=== PATIENT | male | born 1960 | race Caucasian/White ===

== ENCOUNTER 2016-08-29 19:35 | Emergency (ER) | payer OTHER ==
[2016-08-29 19:47] VITALS: BP 136/64; PULSE 90; TEMP 97.9; BMI 31.9
--- NOTE | 2016-08-29 20:58 | PDOC ---
"History of Present Illness <Olivia Fuchs - Last Filed: 08/29/16 20:53> - General History Source: Patient Exam Limitations: No Limitations - History of Present Illness Initial Comments: 08/29/16 21:07 Chief Complaint: Misplaced his bottle came for a new script of Percocet. History of Present Illness: The patient is a 56 year old male, with a significant past medical history of Chronic hip pain, OCD, depression, Anxiety, Bilateral knee replacement, Arthritis of bilateral hips who presents to the emergency department requesting percocet.He states he keeps his medications in a lock box that is only accessible to him. However patient was unable to find his pain medications because he thinks he threw them out. According to DES I stop- patient's record does reveal any sign of narcotic abuse. Patient notes he has a plan to decrease his pain medications in the future. Patient is requesting Percocet until his appointment with Dr. Stevens for his bilateral hip pain. He denies chest pain, headache or dizziness. He denies fever, chills, nausea, vomit, diarrhea or constipation. He denies dysuria, frequency, urgency or hematuria. <Lissette Nolasco - Last Filed: 08/29/16 21:56> - General Chief Complaint: RX Refill Stated Complaint: RX REFILL Time Seen by Provider: 08/29/16 20:29 Past History - Past Medical History HTN: Yes Other medical history: chronic hip pain - Surgical History Abdominal Surgery: Yes (Left inguinal hernia repair X2) Orthopedic Surgery: Yes (Bilateral knee replacement) - Psycho/Social/Smoking Cessation Hx Anxiety: No Suicidal Ideation: No Smoking Status: Yes Smoking History: Current every day smoker Have you smoked in the past 12 months: Yes Number of Cigarettes Smoked Daily: 20 Information on smoking cessation initiated: No 'Breaking Loose' booklet given: 08/13/15 Hx Alcohol Use: No Drug/Substance Use Hx: No Substance Use Type: None Hx Substance Use Treatment: No <Olivia Fuchs - Last Filed: 08/29/16 20:53> <Lissette Nolasco - Last Filed: 08/29/16 21:56> - Past Medical History Allergies/Adverse Reactions: Allergies Allergy/AdvReac Type Severity Reaction Status Date / Time No Known Allergies Allergy Verified 08/29/16 19:47 Home Medications: Ambulatory Orders Doxepin HCl [Sinequan -] 50 mg PO HS 09/09/12 Lisinopril/Hydrochlorothiazide [Lisinopril-Hctz 20-25 mg Tab] 1 each PO DAILY Clonazepam [Klonopin] 2 mg PO HS 08/13/15 Acetaminophen [Tylenol .Regular Strength -] 325 mg PO TID PRN #0 tablet Aspirin [ASA -] 81 mg PO DAILY tab.chew 08/14/15 Venlafaxine HCl ER [Effexor Xr -] 300 mg PO DAILY cap.er.24h 08/14/15 Oxycodone HCl/Acetaminophen [Oxycodone-Acetaminophen 5-325] 1.5 each PO Q8H PRN #8 tablet MDD 4.5 tabs 08/29/16 Review of Systems - Review of Systems Able to Perform ROS?: Yes Comments:: 08/29/16 21:09 CONSTITUTIONAL: Absent: fever, no chills, no fatigue EYES: Absent: visual changes ENT: Absent: ear pain, no sore throat CARDIOVASCULAR: Absent: chest pain, no palpitations RESPIRATORY: Absent: cough, no SOB GI: Absent: abdominal pain, no nausea, no vomiting, no constipation, no diarrhea GENITOURINARY: Absent: dysuria, no frequency, no hematuria MUSCULOSKELETAL: + Bilateral hip pain. Absent: back pain, no arthralgia, no myalgia SKIN: Absent: rash NEURO: Absent: headache <Lissette Nolasco - Last Filed: 08/29/16 21:56> *Physical Exam - Vital Signs Last Vital Signs Temp Pulse Resp BP Pulse Ox 97.9 F 90 18 136/64 99 08/29/16 19:43 08/29/16 19:43 08/29/16 19:43 08/29/16 19:43 08/29/16 19:43 <Olivia Fuchs - Last Filed: 08/29/16 20:53> - Vital Signs Last Vital Signs Temp Pulse Resp BP Pulse Ox 97.9 F 90 18 136/64 99 08/29/16 19:43 08/29/16 19:43 08/29/16 19:43 08/29/16 19:43 08/29/16 19:43 - Physical Exam Comments: 08/29/16 21:09 GENERAL: Well-appearing, well-nourished. No apparent distress. HEENT: Normocephalic, atraumatic. PERRL, EOM intact. CARDIOVASCULAR: Normal S1, S2. Regular rate and rhythm. PULMONARY: Clear to auscultation bilaterally. ABDOMEN: Soft, non-distended, non-tender. EXTREMITIES: Normal ROM in all four extremities. No gross deformities. SKIN: Warm, dry. No rash NEUROLOGICAL: No focal neurological deficits. <Lissette Nolasco - Last Filed: 08/29/16 21:56> Medical Decision Making - Medical Decision Making 08/29/16 20:54 B/L hip pain lost RX for percocet will give pt rx for percocet 7.5mg/325mg every 8 hrs # 5 tabs Search Terms: juan Davidson, 1960 Search Date: 08/29/2016 08:52:35 PM report was requested by: Olivia Fuchs | Reference #: [id number] Others' Prescriptions Patient Name: Juan Davidson Date: 1960 Address: [address] [place] [address] Sex: Male Rx Written Rx Dispensed Drug Quantity Days Supply Prescriber Name 08/10/2016 08/19/2016 oxycodone-acetaminophen 10-325 mg tab 90 30 Edgar Stevens MD 08/03/2016 08/11/2016 clonazepam 1 mg tablet 90 30 Tye Mason MD 07/12/2016 07/21/2016 oxycodone-acetaminophen 10-325 mg tab 90 30 Edgar Stevens MD 06/23/2016 07/12/2016 clonazepam 1 mg tablet 90 30 Tye Mason MD 06/15/2016 06/22/2016 oxycodone-acetaminophen 10-325 mg tab 90 30 Edgar Stevens MD 05/25/2016 06/13/2016 clonazepam 1 mg tablet 90 30 Tye Mason MD <Olivia Fuchs - Last Filed: 08/29/16 20:53> *DC/Admit/Observation/Transfer <Olivia Fuchs - Last Filed: 08/29/16 20:53> - Attestations Scribe Attestion: 08/29/16 21:09 Documentation prepared by Lissette Nolasco, acting as emergency medical dispatcher for Olivia Fuchs NP <Lissette Nolasco - Last Filed: 08/29/16 21:56> Diagnosis at time of Disposition: Medication refill Osteoarthritis Qualifiers: Osteoarthritis location: hip Osteoarthritis type: unspecified Laterality: bilateral Qualified Code(s): M16.0 - Bilateral primary osteoarthritis of hip - Discharge Dispostion Disposition: HOME Condition at time of disposition: Stable - Prescriptions Prescriptions: Oxycodone HCl/Acetaminophen [Oxycodone-Acetaminophen 5-325] 1.5 each PO Q8H PRN #8 tablet MDD 4.5 tabs PRN Reason: Severe Pain - Referrals Referrals: Edgar Stevens MD [Primary Care Provider] - - Patient Instructions Additional Instructions: Must follow up with Dr. Stevens on 08/31/16 in order to obtain an additional pain medication Return to emergency room if any new symptoms develop Patient voiced understanding of discharge instructions and all questions were answered"
== END 2016-08-29 21:10 | disposition home or self-care (01) ==
LOC: JERFT 19:35
DX: M16.0 Bilateral primary osteoarthritis of hip (principal)
CPT/HCPCS: 99281-25

== ENCOUNTER 2016-11-20 13:29 | Inpatient (IN) | payer OTHER ==
--- NOTE | 2016-11-20 13:44 | PDOC ---
History of Present Illness <Solitario Baldwin - Last Filed: 11/20/16 15:39> - General History Source: Patient Exam Limitations: No Limitations - History of Present Illness Initial Comments: 11/20/16 14:16 The patient is a 56 year old male with a significant PMH of who presents to the emergency department with shortness of breath and chest pain beginning today. The patient reports cleaning outside of his house and going inside to lay down, when he experienced about an hour of shortness of breath. He reports experiencing chest pain shortly after. He also notes associated weakness with his chest pain. The patient denies that the chest pain is aggravated by inspiration. The patient also visited Dr. Stevens for dark stool at around , and was referred to Dr. Grullon for evaluation of possible ulcers. The patient appears anxious upon presentation to the ED. The patient denies headache and dizziness. Denies fever, chills, nausea, vomit, diarrhea and constipation. Denies dysuria, frequency, urgency and hematuria. Allergies: NKA Past surgical history: Left inguinal hernia repair x2. Bilateral knee replacement. Social history: Everyday smoker (6 cigs/day). No reported alcohol or drug use. PCP: Dr. Stevens <Akash Ray - Last Filed: 11/20/16 18:46> - General Stated Complaint: CHEST PAIN Past History - Past Medical History HTN: Yes - Surgical History Abdominal Surgery: Yes (Left inguinal hernia repair X2) Orthopedic Surgery: Yes (Bilateral knee replacement) - Suicide/Smoking/Psychosocial Hx Smoking Status: Yes Smoking History: Current every day smoker Have you smoked in the past 12 months: Yes Number of Cigarettes Smoked Daily: 20 'Breaking Loose' booklet given: 08/13/15 Hx Alcohol Use: No Drug/Substance Use Hx: No Substance Use Type: None Hx Substance Use Treatment: No <Solitario Baldwin - Last Filed: 11/20/16 15:39> <Akash Ray - Last Filed: 11/20/16 18:46> - Past Medical History Allergies/Adverse Reactions: Allergies Allergy/AdvReac Type Severity Reaction Status Date / Time No Known Allergies Allergy Verified 08/29/16 19:47 Home Medications: Ambulatory Orders Doxepin HCl [Sinequan -] 50 mg PO HS 09/09/12 Clonazepam [Klonopin] 0 mg PO TID 08/13/15 Venlafaxine HCl ER [Effexor Xr -] 300 mg PO DAILY cap.er.24h 08/14/15 Lisinopril 0 mg PO DAILY 11/20/16 Omeprazole 40 mg PO DAILY 11/20/16 Oxycodone HCl/Acetaminophen [Oxycodone-Acetaminophen 10-325] 1 each PO TID PRN 11/20/16 Review of Systems - Review of Systems Comments:: 11/20/16 14:17 GENERAL/CONSTITUTIONAL: (+) Weakness. No fever or chills. HEAD, EYES, EARS, NOSE AND THROAT: No change in vision. No ear pain or discharge. No sore throat. CARDIOVASCULAR: (+) Chest pain. (+) Shortness of breath. RESPIRATORY: No cough, wheezing, or hemoptysis. GASTROINTESTINAL: No nausea, vomiting, diarrhea or constipation. GENITOURINARY: No dysuria, frequency, or change in urination. MUSCULOSKELETAL: No joint or muscle swelling or pain. No neck or back pain. SKIN: No rash NEUROLOGIC: No headache, vertigo, loss of consciousness, or change in strength/ sensation. ENDOCRINE: No increased thirst. No abnormal weight change. HEMATOLOGIC/LYMPHATIC: No anemia, easy bleeding, or history of blood clots. ALLERGIC/IMMUNOLOGIC: No hives or skin allergy. <Akash Ray - Last Filed: 11/20/16 18:46> *Physical Exam - Vital Signs Last Vital Signs Temp Pulse Resp BP Pulse Ox 99.4 F 106 H 18 113/75 99 11/20/16 13:46 11/20/16 13:46 11/20/16 13:46 11/20/16 13:46 11/20/16 13:46 - Physical Exam Comments: 11/20/16 14:17 GENERAL: (+) Moderate distress. Awake, alert, and fully oriented. HEAD: No signs of trauma EYES: PERRLA, EOMI, sclera anicteric, conjunctiva clear ENT: Auricles normal inspection, hearing grossly normal, nares patent, oropharynx clear without exudates. Moist mucosa NECK: Normal ROM, supple, no lymphadenopathy, JVD, or masses LUNGS: Breath sounds equal, clear to auscultation bilaterally. No wheezes, and no crackles HEART: Regular rate and rhythm, normal S1 and S2, no murmurs, rubs or gallops ABDOMEN: Soft, nontender, normoactive bowel sounds. No guarding, no rebound. No masses EXTREMITIES: Normal range of motion, no edema. No clubbing or cyanosis. No cords, erythema, or tenderness NEUROLOGICAL: Cranial nerves II through XII grossly intact. Normal speech. SKIN: Warm, Dry, normal turgor, no rashes or lesions noted. <Akash Ray - Last Filed: 11/20/16 18:46> Heart Score/ECG Review #1 11/20/16 15:00 Vent rate 106 bpm DE interval 126 ms QRS duration 72 ms QT/QTc 318/422 ms P-R-T axes 47 15 30 Sinus tachycardia. Otherwise normal ECG. <Akash Ray - Last Filed: 11/20/16 18:46> ED Treatment Course - LABORATORY CBC & Chemistry Diagram: 11/20/16 14:00 11/20/16 14:00 <Solitario Baldwin - Last Filed: 11/20/16 15:39> - LABORATORY CBC & Chemistry Diagram: 11/20/16 14:00 11/20/16 14:00 - RADIOLOGY Radiology Obstetrics Specialist: Allan Hagen Radiograph Interpretation: 11/20/16 15:[address] Hagen regarding nodules found on the patient's CXR. He recommends running chest, abdomen, and pelvis CT's with contrast to determine if there are primary, secondary, or metastatic sources of cancer. - Additional Consults Time Called: 18:40 (Dr. Benites, covering for Dr. Vance) Time Called: 18:45 (Dr. Mendez, admitting for Dr. Stevens) <Akash Ray - Last Filed: 11/20/16 18:46> *DC/Admit/Observation/Transfer - Discharge Dispostion Admit: Yes - Attestations Physician Attestion: 11/20/16 13:44 I, Dr. Solitario Baldwin, attest that this document has been prepared under my direction and personally reviewed by me in its entirety. I further attest, that it accurately reflects all work, treatment, procedures and medical decision -making performed by me. <Solitario Baldwin - Last Filed: 11/20/16 15:39> - Attestations Scribe Attestion: 11/20/16 14:17 Documentation prepared by Akash Ray, acting as medical technologist hematology for Solitario Baldwin DO. <Akash Ray - Last Filed: 11/20/16 18:46> Diagnosis at time of Disposition: Metastatic neoplastic disease, SOB (shortness of breath) GI bleeding Qualifiers: GI bleed type/associated pathology: melena Qualified Code(s): K92.1 - Melena - Discharge Dispostion Condition at time of disposition: Improved - Referrals
[2016-11-20] MEDS ORDERED: ASPIRIN 81 MG CHEWABLE TABLETS PO ONE (13:45)
[2016-11-20 13:53] VITALS: BMI 33.3
[2016-11-20] MEDS ORDERED: PANTOPRAZOLE SODIUM 40 MG in SODIUM CHLORIDE 100 ML IVPB ONE (14:06)
[2016-11-20] MEDS ORDERED: PANTOPRAZOLE SODIUM 100 ML IVPB ONE (14:14)
[2016-11-20 14:24] LABS: BASO % 0.4 % (0-2.0); EOS % 0.2 % (0-4.5); HEMATOCRIT 29.4 % (35.4-49); HEMOGLOBIN 9.6 GM/dL (11.7-16.9); LYMPH % 11.6 % (8-40); MCH 25.2 pg (25.7-33.7); MCHC 32.6 g/dl (32.0-35.9); MEAN CELL VOLUME 77.3 fl (80-96); MEAN PLT VOLUME 7.1 fl (7.5-11.1); MONO % 4.7 % (3.8-10.2); NEUT % 83.1 % (42.8-82.8); PLATELET COUNT 467 K/MM3 (134-434); WHITE BLOOD COUNT 16.3 K/mm3 (4.0-10.0)
[2016-11-20] MEDS: SODIUM CHLORIDE 1,000 ML IV SCH (14:26)
[2016-11-20 14:39] LABS: ALBUMIN 2.7 g/dl (3.4-5.0); ANION GAP 10 (8-16); BLOOD UREA NITROGEN 16 mg/dL (7-18); CALCIUM 8.2 mg/dL (8.5-10.1); CHLORIDE 103 mmol/L (98-107); CO2 25 mmol/L (21-32); CREATININE 0.8 mg/dL (0.7-1.3); GLUCOSE,RANDOM 116 mg/dL (74-106); LIPASE 99 U/L (73-393); MAGNESIUM 2.2 mg/dL (1.8-2.4); SGOT/AST 9 U/L (15-37); SGPT/ALT 22 U/L (12-78); SODIUM 138 mmol/L (136-145); TOT PROT 6.1 g/dl (6.4-8.2)
[2016-11-20 14:42] LABS: ALK PHOS 68 U/L (45-117); BILIRUBIN,TOTAL < 0.1 mg/dL (0.2-1.0)
[2016-11-20 14:56] LABS: INR 1.08 (0.82-1.09); PROTHROMBIN TIME (PATIENT) 11.9 SEC (9.98-11.88)
[2016-11-20 14:58] LABS: ACTIVATED PTT 27.9 SECONDS (26.9-34.4)
[2016-11-20] MEDS ORDERED: ONDANSETRON 4 MG/2 ML VIAL ONE (15:32)
[2016-11-20] MEDS ORDERED: HYDROmorphone HCL CARPU-JECT 1 MG/1 ML DISP.SYRIN ONE (15:32)
[2016-11-20] MEDS ORDERED: KETOROLAC TROMETHAMINE 30 MG/1 ML VIAL IVPUSH ONE (15:35)
[2016-11-20] MEDS ORDERED: ONDANSETRON *ODT* 4 MG TABLET ONE (15:36)
[2016-11-20] MEDS ORDERED: KETOROLAC TROMETHAMINE 60 MG/2 ML VIAL ONE (15:39)
[2016-11-20] MEDS ORDERED: diazePAM 5 MG TABLET ONE (18:52)
[2016-11-20 18:56] LABS: URINE APPEARANCE CLEAR; URINE BILIRUBIN NEGATIVE (NEGATIVE); URINE COLOR YELLOW; URINE GLUCOSE (UA) NEGATIVE (NEGATIVE); URINE KETONE NEGATIVE (NEGATIVE); URINE LEUK ESTERASE NEGATIVE (NEGATIVE); URINE NITRITE NEGATIVE (NEGATIVE); URINE PROTEIN NEGATIVE (NEGATIVE); URINE UROBILINOGEN NEGATIVE mg/dL (0.2-1.0)
[2016-11-20] MEDS: diazePAM 5 MG TABLET PO ONE (19:00)
[2016-11-20] MEDS ORDERED: PATIENT'S OWN MEDICATION (NON-FORMULARY) (Oxycodone Hcl/Acetaminophen [Oxycodone-Acetamino PO PRN (19:21)
[2016-11-20] MEDS ORDERED: clonazePAM 2 MG TABLET PO PRN (19:21)
[2016-11-20] MEDS ORDERED: ACETAMINOPHEN 325 MG TABLET (FP) PO PRN (19:45)
[2016-11-20] MEDS: DOXEPIN HCL 25 MG CAPSULE PO SCH (21:45)
[2016-11-20] MEDS: clonazePAM 0.5 MG TABLET PO PRN (21:47)
[2016-11-21 08:37] LABS: BASO % 0.5 % (0-2.0); EOS % 0.9 % (0-4.5); HEMATOCRIT 29.8 % (35.4-49); HEMOGLOBIN 9.7 GM/dL (11.7-16.9); LYMPH % 18.9 % (8-40); MCH 25.2 pg (25.7-33.7); MCHC 32.5 g/dl (32.0-35.9); MEAN CELL VOLUME 77.7 fl (80-96); MEAN PLT VOLUME 7.3 fl (7.5-11.1); NEUT % 73.7 % (42.8-82.8); PLATELET COUNT 453 K/MM3 (134-434); RBC 3.83 M/mm3 (4.00-5.60); RDW 14.4 % (11.9-15.9); WHITE BLOOD COUNT 14.3 K/mm3 (4.0-10.0)
[2016-11-21 09:08] LABS: ALBUMIN 2.5 g/dl (3.4-5.0); ANION GAP 8 (8-16); BILIRUBIN,TOTAL 0.2 mg/dL (0.2-1.0); BLOOD UREA NITROGEN 13 mg/dL (7-18); CALCIUM 8.4 mg/dL (8.5-10.1); CHLORIDE 105 mmol/L (98-107); CO2 27 mmol/L (21-32); CREATININE 0.7 mg/dL (0.7-1.3); GLUCOSE,RANDOM 121 mg/dL (74-106); POTASSIUM 4.3 mmol/L (3.5-5.1); SGPT/ALT 19 U/L (12-78); SODIUM 140 mmol/L (136-145); TOT PROT 5.6 g/dl (6.4-8.2)
[2016-11-21 09:09] LABS: ALK PHOS 65 U/L (45-117)
[2016-11-21 09:10] LABS: SGOT/AST 4 U/L (15-37)
[2016-11-21] MEDS ORDERED: PT OWN MED DRAWER 7, Y5N ONE ×2 (09:25→21:08)
[2016-11-21] MEDS: PANTOPRAZOLE 40 MG TABLET (FP) PO SCH (09:35)
[2016-11-21] MEDS: LISINOPRIL 10 MG TABLET (FP) PO SCH (09:36)
[2016-11-21] MEDS: oxyCODONE HCL 5 MG TABLET PO PRN (09:59)
[2016-11-21] MEDS ORDERED: diazePAM 5 MG TABLET PO SCH (10:00)
[2016-11-21] MEDS ORDERED: PANTOPRAZOLE 40 MG TABLET (FP) PO SCH (10:00)
[2016-11-21] MEDS ORDERED: VENLAFAXINE HCL 150 MG E.R. CAPSULE PO SCH (10:00)
[2016-11-21] MEDS: VENLAFAXINE HCL 75 MG E.R. CAPSULES (FP) PO SCH (10:53)
--- NOTE | 2016-11-21 11:07 | CON.PSY ---
Psychiatry Consult Chief Complaint: I have depression and OCD Symptoms: reports: Depressed Mood - Previous Psychiatric Treatment Outpatient: Less than 6 mos ago Inpatient: One prior admission - Reason for Previous Treatment Reason for Previous Treatment: Major Depression - Current Medications Current Medications: Active Medications Acetaminophen (Tylenol -) 650 mg PO Q4H PRN PRN Reason: PAIN Stop: 11/23/16 19:44 Clonazepam (Klonopin -) 1 mg PO TID PRN PRN Reason: ANXIETY Last Admin: 11/20/16 21:47 Dose: 1 mg Diazepam (Valium -) 10 mg PO ONCE ONE Stop: 11/21/16 18:56 Last Admin: 11/20/16 19:00 Dose: 10 mg Doxepin HCl (Sinequan -) 50 mg PO HS [facility] Last Admin: 11/20/16 21:45 Dose: 50 mg Sodium Chloride (Normal Saline -) 1,000 mls @ 125 mls/hr IV ASDIR [facility] Last Admin: 11/20/16 14:26 Dose: 125 mls/hr Lisinopril (Prinivil) 10 mg PO DAILY [facility] Last Admin: 11/21/16 09:36 Dose: 10 mg Oxycodone HCl (Roxicodone -) 10 mg PO Q8H PRN PRN Reason: PAIN Last Admin: 11/21/16 09:59 Dose: 10 mg Pantoprazole Sodium (Protonix -) 40 mg PO DAILY [facility] Last Admin: 11/21/16 09:35 Dose: 40 mg Pantoprazole Sodium (Protonix -) 40 mg PO DAILY [facility] Venlafaxine HCl (Effexor Xr -) 300 mg PO DAILY [facility] Last Admin: 11/21/16 10:53 Dose: 300 mg - Allergies Allergies: Allergies Allergy/AdvReac Type Severity Reaction Status Date / Time No Known Allergies Allergy Verified 08/29/16 19:47 - Current Living Status Usual Living Arrangement: With Spouse - Current Mental Status Evaluation Appearance: Well Groomed Attitude: Cooperative - Affect Affect: Constrictive Appropriateness: Appropriate to Content - Mood Mood: Depressed - Speech/Language Expressive: Coherent - Psychomotor Activity Psychomotor Activity: Normal - Thought Process Thought Process: Intact - Thought Content Hallucinations: Absent Delusions: Absent - Self Perception Self Perception: No Impairment - Cognition Attention: Alert Orientation: Time Memory, Immediate Recall: Intact Memory, Short Term: 2/3 Memory, Remote with Promptin/3 - Concentration Serial Sevens Intact: Yes Simple Calculations Intact: Yes - Abstraction Proverb Interpretation: Intact Judgement: Intact - Insight Insight: Intact - Impulse Control Impulse Control: Good Control - Suicidal Ideation Suicidal Ideation: No - Homicidal Ideation Homicidal Ideation: No Assessment/Plan 1) Continue with [facility] psych meds.
--- NOTE | 2016-11-21 11:12 | CON.PULM ---
Consult Consult Specialty:: PULM/CCM Referred by:: JEAN Reason for Consultation:: Abnormal CT chest - History of Present Illness Chief Complaint: Weakness History of Present Illness: 56 M, with listed medical history. Bilateral knee replacement, OA, depression, and every day smoker. Reports having blood in the stool over the past few weeks. No travel history or sick contacts. No hemoptysis or night sweats. (+) unspecified amount of weight loss. No previous CT imaging for comparison. CT : innumerable bilateral non-calcified pulmonary nodules / right renal mass - History Source History Provided By: Patient Limitations to Obtaining History: No Limitations - Past Medical History Cardio/Vascular: Yes: HTN Pulmonary: Yes: Other (smoker ) Psych: Yes: Depression - Past Surgical History Past Surgical History: Yes: Joint Replacement (B/L knees) - Alcohol/Substance Use Hx Alcohol Use: No - Smoking History Smoking history: Current every day smoker Have you smoked in the past 12 months: Yes Aproximately how many cigarettes per day: 20 - Social History ADL: Independent History of Recent Travel: No Home Medications - Allergies Allergies/Adverse Reactions: Allergies Allergy/AdvReac Type Severity Reaction Status Date / Time No Known Allergies Allergy Verified 08/29/16 19:47 - Home Medications Home Medications: Ambulatory Orders Doxepin HCl [Sinequan -] 50 mg PO HS 09/09/12 Clonazepam [Klonopin] 0 mg PO TID 08/13/15 Venlafaxine HCl ER [Effexor Xr -] 300 mg PO DAILY cap.er.24h 08/14/15 Lisinopril 0 mg PO DAILY 11/20/16 Omeprazole 40 mg PO DAILY 11/20/16 Oxycodone HCl/Acetaminophen [Oxycodone-Acetaminophen 10-325] 1 each PO TID PRN 11/20/16 Family Disease History - Family Disease History Family Disease History: Heart Disease: Father Review of Systems - Review of Systems Constitutional: reports: Malaise, Unintentional Wgt. Loss. denies: Chills, Night Sweats, Weakness Eyes: reports: No Symptoms HENT: reports: No Symptoms Neck: reports: No Symptoms Cardiovascular: reports: Chest Pain, Shortness of Breath. denies: Edema, Palpitations Respiratory: reports: Cough, SOB, SOB on Exertion. denies: Hemoptysis, Orthopnea, Snoring, Wheezing Gastrointestinal: reports: No Symptoms, Rectal Bleeding. denies: Vomiting, Vomiting Blood Genitourinary: reports: No Symptoms Breasts: reports: No Symptoms Reported Musculoskeletal: reports: Joint Pain, Muscle Cramps Integumentary: reports: No Symptoms Neurological: reports: No Symptoms Endocrine: reports: No Symptoms Hematology/Lymphatic: reports: No Symptoms Psychiatric: reports: No Symptoms Physical Exam Vital Sings: Vital Signs Temperature 97.9 F 11/21/16 06:08 Pulse Rate 72 11/21/16 06:08 Respiratory Rate 16 11/21/16 06:08 Blood Pressure 114/72 11/21/16 06:08 O2 Sat by Pulse Oximetry (%) 97 11/20/16 21:00 Constitutional: Yes: No Distress, Anxious, Other (weeping ) Eyes: Yes: Conjunctiva Clear, EOM Intact HENT: Yes: Atraumatic, Normocephalic Neck: Yes: Supple, Trachea Midline Cardiovascular: Yes: Regular Rate and Rhythm Respiratory: Yes: Regular, CTA Bilaterally ...Inspection: Yes: WNL ...Clubbing: No Gastrointestinal: Yes: Normal Bowel Sounds, Soft Renal/: Yes: WNL Musculoskeletal: Yes: WNL Extremities: Yes: WNL Edema: No Peripheral Pulses WNL: Yes Integumentary: Yes: WNL Neurological: Yes: WNL, Alert, Cran Nerves II-XII Intact ...Motor Strength: WNL Psychiatric: Yes: Alert, Oriented, Other (anxious / weeping ) Labs: CBC, BMP 11/21/16 07:30 11/21/16 07:30 Imaging - Results Chest X-ray: Report Reviewed, Image Reviewed Cat Scan: Report Reviewed, Image Reviewed Problem List - Problems (1) GI bleeding Code(s): K92.2 - GASTROINTESTINAL HEMORRHAGE, UNSPECIFIED Qualifiers: GI bleed type/associated pathology: melena Qualified Code(s): K92.1 - Melena (2) Metastatic neoplastic disease Code(s): C79.9 - SECONDARY MALIGNANT NEOPLASM OF UNSPECIFIED SITE (3) SOB (shortness of breath) Code(s): R06.02 - SHORTNESS OF BREATH (4) Chest pain Code(s): R07.9 - CHEST PAIN, UNSPECIFIED Qualifiers: Chest pain type: unspecified Qualified Code(s): R07.9 - Chest pain, unspecified (5) HTN (hypertension) Code(s): I10 - ESSENTIAL (PRIMARY) HYPERTENSION Qualifiers: Hypertension type: essential hypertension Qualified Code(s): I10 - Essential (primary) hypertension (6) Osteoarthritis Code(s): M19.90 - UNSPECIFIED OSTEOARTHRITIS, UNSPECIFIED SITE Qualifiers: Osteoarthritis location: hip Osteoarthritis type: unspecified Laterality: bilateral Qualified Code(s): M16.0 - Bilateral primary osteoarthritis of hip (7) Smoking Code(s): F17.200 - NICOTINE DEPENDENCE, UNSPECIFIED, UNCOMPLICATED Assessment/Plan PLAN : D/W IR -> Will plan for likely intra-abdominal Lymph Node sampling tomorrow : Suspicion of primary Renal Cell CA VTE prophylaxis O2 needed Psych consult Will follow Dr Simpson
--- NOTE | 2016-11-21 11:15 | EKG ---
Test Reason : Blood Pressure : / mmHG Vent. Rate : 106 BPM Atrial Rate : 106 BPM P-R Int : 126 ms QRS Dur : 072 ms QT Int : 318 ms P-R-T Axes : 047 015 030 degrees QTc Int : 422 ms SINUS TACHYCARDIA OTHERWISE NORMAL ECG WHEN COMPARED WITH ECG OF 13-AUG-2015 11:54, NONSPECIFIC T WAVE ABNORMALITY NO LONGER EVIDENT IN LATERAL LEADS Confirmed by ZENIA PHAM MD ([id number]) on 11/21/2016 11:15:23 AM Referred By: Confirmed By:ZENIA PHAM MD
--- NOTE | 2016-11-21 11:27 | CON.CARD ---
Consult Consult Specialty:: Cardiology Referred by:: Dr. Bah Reason for Consultation:: Chest pain, SOB - History of Present Illness Chief Complaint: chest pain, sob History of Present Illness: 56 year old man with a history of smoking, mild non-obstructive CAD on cardiac cath 07/2015, admitted with chest pain and sob, found to have imaging c/w metastatic malignancy. Pt seen and examined today in [facility]. anxious appearing. no current complaints. no further chest pain or sob since admission. states that he had an argument yesterday while doing some yardwork and this is when his symptoms began and included palpitations. no pnd, orthopnea, or le edema. no lightheadedness, dizziness, syncope, or near syncope. Of note pt was admitted here 07/2015 for chest pain and had an abnormal nuclear stress test, he then was transferred to [facility] where cardiac cath showed only very mild non-obs CAD. - History Source History Provided By: Patient, Medical Record Limitations to Obtaining History: No Limitations - Past Medical History Cardio/Vascular: Yes: CAD, HTN Pulmonary: Yes: Other (smoker ) Psych: Yes: Depression - Past Surgical History Past Surgical History: Yes: Joint Replacement (B/L knees) - Alcohol/Substance Use Hx Alcohol Use: No - Smoking History Smoking history: Current every day smoker Have you smoked in the past 12 months: Yes Aproximately how many cigarettes per day: 20 - Social History Usual Living Arrangement: With Spouse ADL: Independent History of Recent Travel: No Home Medications - Allergies Allergies/Adverse Reactions: Allergies Allergy/AdvReac Type Severity Reaction Status Date / Time No Known Allergies Allergy Verified 08/29/16 19:47 - Home Medications Home Medications: Ambulatory Orders Doxepin HCl [Sinequan -] 50 mg PO HS 09/09/12 Clonazepam [Klonopin] 0 mg PO TID 08/13/15 Venlafaxine HCl ER [Effexor Xr -] 300 mg PO DAILY cap.er.24h 08/14/15 Lisinopril 0 mg PO DAILY 11/20/16 Omeprazole 40 mg PO DAILY 11/20/16 Oxycodone HCl/Acetaminophen [Oxycodone-Acetaminophen 10-325] 1 each PO TID PRN 11/20/16 Family Disease History - Family Disease History Family Disease History: Heart Disease: Father Review of Systems - Review of Systems Constitutional: denies: No Symptoms, Chills, Diaphoresis, Fever, Lethargy, Loss of Appetite, Malaise, Night Sweats, Unintentional Wgt. Loss, Weakness, Other Eyes: denies: No Symptoms, Blind Spots, Blurred Vision, Double Vision, Eye Pain , Floaters, Photophobia, Recent Change in Vision, Other HENT: denies: No Symptoms, Difficult Swallowing, Ear Discharge, Ear Pain, Epistaxis, Gingival Bleeding, Hearing Loss, Mouth Swelling, Nasal Congestion, Ocular Prosthesis, Throat Pain, Toothache, Ringing in Ears, Other Neck: denies: No Symptoms, Decreased ROM, Lumps, Pain on Movement, Stiffness, Swollen Glands, Tenderness, Other Cardiovascular: reports: Chest Pain, Palpitations, Shortness of Breath. denies : No Symptoms, Edema, Other Respiratory: reports: SOB. denies: No Symptoms, Cough, Exercise Intolerance, Hemoptysis, Orthopnea, PND, Snoring, SOB on Exertion, Wheezing, Other Gastrointestinal: denies: No Symptoms, Abdominal Pain, Bloating, Constipation, Diarrhea, Dysphagia, Indigestion, Melena, Nausea, Rectal Bleeding, Vomiting, Vomiting Blood, Other Genitourinary: denies: No Symptoms, Burning, Discharge, Dysuria, Flank Pain, Frequency, Hematuria, Incontinence, Lesions, Menses, Pain, Testicular Mass, Testicular Pain, Testicular Swelling, Urgency, Vaginal Bleeding, Other Breasts: denies: No Symptoms Reported, See HPI, Breast Implants, Discharge from Nipple, Lumps, Pain, Skin Changes, Other Musculoskeletal: denies: No Symptoms, Back Pain, Crepitus, Decreased ROM, Extremity Pain, Joint Pain, Joint Swelling, Muscle Pain, Muscle Cramps, Muscle Weakness, Other Integumentary: denies: No Symptoms, Blister, Bruising, Change in Color, Eczema, Erythema, Incision, Lesions, Lump, Pallor, Pruritis, Rash, Wound, Other Neurological: denies: No Symptoms, Change in LOC, Change in Speech, Confusion, Dizziness, Headache, Incoordination, Numbness, Parasthesia, Pre-Existing Deficit , Seizure, Syncope, Tremors, Unsteady Gait, Weakness, Other Endocrine: denies: No Symptoms, Excessive Sweating, Flushing, Increased Hunger, Increased Thirst, Intolerance to Cold, Intolerance to Heat, Unexplained Weight Gain, Unexplained Weight Loss, Other Hematology/Lymphatic: denies: No Symptoms, Easily Bruised, Excessive Bleeding, Swollen Glands, Other Psychiatric: denies: No Symptoms, Altered Sleep Pattern, Anxiety, Depression, Hallucinations, Panic, Paranoia, Suicidal, Other - Risk Factors Known Risk Factors: Yes: Hypertension, Smoking Vital Signs: Vital Signs Temperature 97.9 F 11/21/16 06:08 Pulse Rate 72 11/21/16 06:08 Respiratory Rate 16 11/21/16 06:08 Blood Pressure 114/72 11/21/16 06:08 O2 Sat by Pulse Oximetry (%) 97 11/20/16 21:00 Constitutional: Yes: Well Nourished, No Distress, Anxious Eyes: Yes: WNL, Conjunctiva Clear, EOM Intact, PERRL HENT: Yes: WNL, Atraumatic, Normocephalic Neck: Yes: WNL, Supple, Trachea Midline Respiratory: Yes: Regular, Rhonchi. No: CTA Bilaterally, On Nasal O2, Rales, SOB, Wheezes Gastrointestinal: Yes: WNL, Normal Bowel Sounds, Soft. No: Distention, Tenderness Renal/: Yes: WNL Cardiovascular: Yes: Regular Rate and Rhythm. No: Bradycardia, Tachycardia, Pulse Irregular, Gallop, Rub, Varicosities JVD: No Carotid Bruit: No PMI: Non-Displaced Heart Sounds: Yes: S1, S2. No: Split S2, S3, S4, Clicks, Gallop, Rub, Bruit Murmur: No: Systolic Murmur, Diastolic Murmur Musculoskeletal: Yes: WNL Extremities: Yes: WNL Edema: No Peripheral Pulses WNL: Yes Peripheral Pulses: 2+ Left Doralis Pedis, 2+ Right Dorsalis Pedis Integumentary: Yes: WNL Neurological: Yes: WNL, Alert, Oriented, Cran Nerves II-XII Intact ...Motor Strength: WNL Psychiatric: Yes: WNL, Alert, Oriented - Other Data Labs, Other Data: CBC, BMP 11/21/16 07:30 11/21/16 07:30 INR, PTT INR 1.08 (0.82-1.09) 11/20/16 14:00 EKG-sinus tach 106bpm, no sig ST abnl Echo: Pending, Report Reviewed Prior Cardiac Procedures: Cardiac Catheterization Imaging - Results Chest X-ray: Report Reviewed, Image Reviewed EKG: Report Reviewed, Image Reviewed Other: Report Reviewed, Image Reviewed Assessment/Plan 56 year old man with a history of smoking, mild non-obstructive CAD on cardiac cath 07/2015, admitted with chest pain and sob, found to have imaging c/w metastatic malignancy. Pt seen and examined today in [facility]. anxious appearing. no current complaints. no further chest pain or sob since admission. states that he had an argument yesterday while doing some yardwork and this is when his symptoms began and included palpitations. no pnd, orthopnea, or le edema. no lightheadedness, dizziness, syncope, or near syncope. Of note pt was admitted here 07/2015 for chest pain and had an abnormal nuclear stress test, he then was transferred to [facility] where cardiac cath showed only very mild non-obs CAD. Chest pain/SOB-atypical, unlikely cardiac in origin, likely related to metastatic malignancy -cardiac cath reviewed from [facility] 07/2015, mild non-obstructive CAD involving mLAD -cardiac enzymes wnl -ekg showed no ischemia -echo from 07/2015 showed overall normal structural heart -will check echo to confirm no pericardial effusion and no other sig structural heart disease -no additional ischemic work up is needed at this point -malignancy work up in progress -hold any anti-platelets, presume procedures will be needed HTN-adequately controlled -cont lisinopril 10mg daily
--- NOTE | 2016-11-21 12:10 | HP ---
Admitting History and Physical - Primary Care Physician PCP: Edgar Stevens - Admission Chief Complaint: cp History of Present Illness: dictated - Past Medical History Cardiovascular: Yes: CAD, HTN Pulmonary: Yes: Other (smoker ) Psych: Yes: Depression - Past Surgical History Past Surgical History: Yes: Joint Replacement (B/L knees) - Smoking History Smoking history: Current every day smoker Have you smoked in the past 12 months: Yes Aproximately how many cigarettes per day: 20 - Alcohol/Substance Use Hx Alcohol Use: No - Social History ADL: Independent History of Recent Travel: No Home Medications - Allergies Allergies/Adverse Reactions: Allergies Allergy/AdvReac Type Severity Reaction Status Date / Time No Known Allergies Allergy Verified 08/29/16 19:47 - Home Medications Home Medications: Ambulatory Orders Doxepin HCl [Sinequan -] 50 mg PO HS 09/09/12 Clonazepam [Klonopin] 0 mg PO TID 08/13/15 Venlafaxine HCl ER [Effexor Xr -] 300 mg PO DAILY cap.er.24h 08/14/15 Lisinopril 0 mg PO DAILY 11/20/16 Omeprazole 40 mg PO DAILY 11/20/16 Oxycodone HCl/Acetaminophen [Oxycodone-Acetaminophen 10-325] 1 each PO TID PRN 11/20/16 Family Disease History - Family Disease History Family Disease History: Heart Disease: Father Physical Examination Vital Signs: Vital Signs Temperature 97.9 F 11/21/16 06:08 Pulse Rate 72 11/21/16 06:08 Respiratory Rate 16 11/21/16 06:08 Blood Pressure 114/72 11/21/16 06:08 O2 Sat by Pulse Oximetry (%) 97 11/20/16 21:00 Labs: CBC, BMP 11/21/16 07:30 11/21/16 07:30 Problem List - Problems (1) GI bleeding Code(s): K92.2 - GASTROINTESTINAL HEMORRHAGE, UNSPECIFIED Qualifiers: GI bleed type/associated pathology: melena Qualified Code(s): K92.1 - Melena (2) Metastatic neoplastic disease Code(s): C79.9 - SECONDARY MALIGNANT NEOPLASM OF UNSPECIFIED SITE (3) SOB (shortness of breath) Code(s): R06.02 - SHORTNESS OF BREATH (4) Chest pain Code(s): R07.9 - CHEST PAIN, UNSPECIFIED Qualifiers: Chest pain type: unspecified Qualified Code(s): R07.9 - Chest pain, unspecified (5) HTN (hypertension) Code(s): I10 - ESSENTIAL (PRIMARY) HYPERTENSION Qualifiers: Hypertension type: essential hypertension Qualified Code(s): I10 - Essential (primary) hypertension (6) Smoking Code(s): F17.200 - NICOTINE DEPENDENCE, UNSPECIFIED, UNCOMPLICATED
[2016-11-21] MEDS: SODIUM CHLORIDE 1,000 ML IV SCH ×2 (13:46→22:31)
--- NOTE | 2016-11-21 16:34 | CONSULT ---
Consult - text type - Consultation Consultation Note: The patient is a 56 year old male with no significant PMH who presents to the emergency department with shortness of breath and chest pain . The patient reports cleaning outside of his house and going inside to lay down, when he experienced about an hour of shortness of breath. He also notes associated weakness with his chest pain. The patient denies headache and dizziness. Denies fever, chills, nausea, vomit, diarrhea and constipation. Denies dysuria, frequency, urgency and hematuria. Allergies: NKA Past surgical history: Left inguinal hernia repair x2. Bilateral knee replacement. Social history: Everyday smoker (6 cigs/day). No reported alcohol or drug use. - Past Medical History HTN: Yes microscopic hematuria - Surgical History Abdominal Surgery: Yes (Left inguinal hernia repair X2) Orthopedic Surgery: Yes (Bilateral knee replacement) - Suicide/Smoking/Psychosocial Hx Smoking Status: Yes Smoking History: Current every day smoker Family history Mother had bladder cancer Father had cancer MAternal autnt had breast cancer maternal uncle had cancer Allergies/Adverse Reactions: Allergies Allergy/AdvReac Type Severity Reaction Status Date / Time No Known Allergies Allergy Verified 08/29/16 19:47 Home Medications: Ambulatory Orders Doxepin HCl [Sinequan -] 50 mg PO HS 09/09/12 Clonazepam [Klonopin] 0 mg PO TID 08/13/15 Venlafaxine HCl ER [Effexor Xr -] 300 mg PO DAILY cap.er.24h 08/14/15 Lisinopril 0 mg PO DAILY 11/20/16 Omeprazole 40 mg PO DAILY 11/20/16 Oxycodone HCl/Acetaminophen [Oxycodone-Acetaminophen 10-325] 1 each PO TID PRN 11/20/16 - Vital Signs Last Vital Signs Temp Pulse Resp BP Pulse Ox 97.9 F 79 16 128/74 96 11/21/16 14:32 11/21/16 14:32 11/21/16 14:32 11/21/16 14:32 11/21/16 09:00 Cor: RSR, No murmurs, No gallops Lungs: Clear to P&A Abd: Soft, Normal bowel sounds, No organomegaly Ext:No significant edema cervical adenopathy Active Medications Generic Name Dose Route Start Last Admin Trade Name Freq PRN Reason Stop Dose Admin Acetaminophen 650 mg 11/21/16 10:21 Tylenol - PO 11/23/16 19:44 Q4H PRN PAIN Clonazepam 1 mg 11/20/16 21:19 11/20/16 21:47 Klonopin - PO 1 mg TID PRN Administration ANXIETY Diazepam 10 mg 11/21/16 18:55 11/20/16 19:00 Valium - PO 11/21/16 18:56 10 mg ONCE ONE Administration Doxepin HCl 50 mg 11/20/16 22:00 11/20/16 21:45 Sinequan - PO 50 mg HS KATELYN Administration Sodium Chloride 1,000 mls @ 125 mls/hr 11/20/16 13:45 11/21/16 13:46 Normal Saline - IV 125 mls/hr ASDIR KATELYN Administration Lisinopril 10 mg 11/21/16 10:00 11/21/16 09:36 Prinivil PO 10 mg DAILY KATELYN Administration Oxycodone HCl 10 mg 11/20/16 19:45 11/21/16 09:59 Roxicodone - PO 10 mg Q8H PRN Administration PAIN Pantoprazole Sodium 40 mg 11/21/16 10:00 11/21/16 09:35 Protonix - PO 40 mg DAILY KATELYN Administration Venlafaxine HCl 300 mg 11/21/16 10:00 11/21/16 10:53 Effexor Xr - PO 300 mg DAILY KATELYN Administration Abnormal Lab Results 11/21/16 11/21/16 07:30 07:30 WBC 14.3 H RBC 3.83 L Hgb 9.7 L Hct 29.8 L MCV 77.7 L MCH 25.2 L Plt Count 453 H MPV 7.3 L Random Glucose 121 H Calcium 8.4 L AST 4 L D Total Protein 5.6 L Albumin 2.5 L A/P 56 y/o patient smoker, s/p Lt. inguinal hernia repair, s/p b/lTKR comes in with fatigue, weakness, melaena No fever/night sweats/wt. loss CT scan --mediastinal adenopathy/intraabdomina;l adenopathy, renal mass, pancreatic soft tissue mass, peritoneal implants Aslo with cervical adenopathy Clinical scenario suspicious for widely metastatic disease CEA/Ca19.9/LDH pending For CT guided biopsy Pt/PTT-nl check HIV testing, iron studies
--- NOTE | 2016-11-21 16:36 | CON.GI ---
Consult Consult Specialty:: GI Referred by:: Dr Juan Bah Reason for Consultation:: anemia/guaiac (+) stool - History of Present Illness Chief Complaint: dyspnea/ROBERTSON History of Present Illness: 56 M with h/o CAD, HTN, admitted after experiencing chest pain and shortness of breath and subsequently found to have radiology consistent with diffuse mets with unk primary. Called to evaluate anemia and guaiac (+) stool. On further questioning, he states that he has been seeing both black and bright red stools for several days now. - History Source History Provided By: Patient, Medical Record Limitations to Obtaining History: No Limitations - Past Medical History Cardio/Vascular: Yes: CAD, HTN Pulmonary: Yes: Other (smoker ) Psych: Yes: Depression - Past Surgical History Past Surgical History: Yes: Joint Replacement (B/L knees) - Alcohol/Substance Use Hx Alcohol Use: No - Smoking History Smoking history: Current every day smoker Have you smoked in the past 12 months: Yes Aproximately how many cigarettes per day: 20 - Social History Usual Living Arrangement: With Spouse ADL: Independent History of Recent Travel: No Home Medications - Allergies Allergies/Adverse Reactions: Allergies Allergy/AdvReac Type Severity Reaction Status Date / Time No Known Allergies Allergy Verified 08/29/16 19:47 - Home Medications Home Medications: Ambulatory Orders Doxepin HCl [Sinequan -] 50 mg PO HS 09/09/12 Clonazepam [Klonopin] 0 mg PO TID 08/13/15 Venlafaxine HCl ER [Effexor Xr -] 300 mg PO DAILY cap.er.24h 08/14/15 Lisinopril 0 mg PO DAILY 11/20/16 Omeprazole 40 mg PO DAILY 11/20/16 Oxycodone HCl/Acetaminophen [Oxycodone-Acetaminophen 10-325] 1 each PO TID PRN 11/20/16 Family Disease History - Family Disease History Family Disease History: Heart Disease: Father Physical Exam-GI Vital Signs: Vital Signs Temperature 97.9 F 11/21/16 14:32 Pulse Rate 79 11/21/16 14:32 Respiratory Rate 16 11/21/16 14:32 Blood Pressure 128/74 11/21/16 14:32 O2 Sat by Pulse Oximetry (%) 96 11/21/16 09:00 Constitutional: Yes: Well Nourished, Anxious HENT: Yes: Normocephalic Neck: Yes: Supple Cardiovascular: Yes: Regular Rate and Rhythm Respiratory: Yes: CTA Bilaterally Gastrointestinal Inspection: Yes: WNL ...Auscultate: Yes: Normoactive Bowel Sounds ...Palpate: Yes: Soft. No: Tenderness ...Percussion: Yes: Dullness Genitourinary: No: CVA Tenderness - Left, CVA Tenderness - Right Labs: CBC, BMP 11/21/16 07:30 11/21/16 07:30 INR, PTT INR 1.08 (0.82-1.09) 11/20/16 14:00 Hepatic Panel Total Bilirubin 0.2 mg/dL (0.2-1.0) D 11/21/16 07:30 AST 4 U/L (15-37) L D 11/21/16 07:30 ALT 19 U/L (12-78) 11/21/16 07:30 Alkaline Phosphatase 65 U/L (45-117) 11/21/16 07:30 Albumin 2.5 g/dl (3.4-5.0) L 11/21/16 07:30 Abnormal Lab Results 11/21/16 11/21/16 07:30 07:30 WBC 14.3 H RBC 3.83 L Hgb 9.7 L Hct 29.8 L MCV 77.7 L MCH 25.2 L Plt Count 453 H MPV 7.3 L Random Glucose 121 H Calcium 8.4 L AST 4 L D Total Protein 5.6 L Albumin 2.5 L Imaging - Results Cat Scan: Report Reviewed (see above) Assessment/Plan 56 M with what looks like newly diagnosed diffusely metastatic cancer. History of recent rectal bleeding suggests possible colon ca Patient is already scheduled for node biopsy tomorrow Will sched prep for Wed and colon on AM Tumor markers sent
[2016-11-21] MEDS: diazePAM 5 MG TABLET PO ONE (19:28)
[2016-11-21] MEDS: DOXEPIN HCL 25 MG CAPSULE PO SCH (21:10)
[2016-11-21] MEDS: clonazePAM 0.5 MG TABLET PO PRN (21:10)
[2016-11-21] MEDS: ACETAMINOPHEN 325 MG TABLET (FP) PO PRN (21:10)
[2016-11-21 22:17] LABS: URINE APPEARANCE CLEAR; URINE BILIRUBIN NEGATIVE (NEGATIVE); URINE COLOR LTYELLOW; URINE GLUCOSE (UA) NEGATIVE (NEGATIVE); URINE KETONE NEGATIVE (NEGATIVE); URINE LEUK ESTERASE NEGATIVE (NEGATIVE); URINE NITRITE NEGATIVE (NEGATIVE); URINE PROTEIN NEGATIVE (NEGATIVE); URINE UROBILINOGEN NEGATIVE mg/dL (0.2-1.0)
[2016-11-21 22:19] LABS: URINE MUCUS RARE; URINE RBC 1 /hpf (0-3); URINE WBC <1 /hpf (3-5)
[2016-11-22] MEDS: SODIUM CHLORIDE 1,000 ML IV SCH (05:47)
[2016-11-22] MEDS: ACETAMINOPHEN 325 MG TABLET (FP) PO PRN ×2 (06:38→15:39)
[2016-11-22] MEDS: oxyCODONE HCL 5 MG TABLET PO PRN ×3 (06:39→15:40)
[2016-11-22 08:27] LABS: BASO % 0.6 % (0-2.0); EOS % 0.7 % (0-4.5); HEMATOCRIT 27.1 % (35.4-49); HEMOGLOBIN 8.8 GM/dL (11.7-16.9); MCHC 32.6 g/dl (32.0-35.9); MEAN CELL VOLUME 76.9 fl (80-96); MEAN PLT VOLUME 6.9 fl (7.5-11.1); MONO % 5.6 % (3.8-10.2); NEUT % 75.1 % (42.8-82.8); PLATELET COUNT 419 K/MM3 (134-434); RBC 3.52 M/mm3 (4.00-5.60); RDW 14.3 % (11.9-15.9); WHITE BLOOD COUNT 11.5 K/mm3 (4.0-10.0)
--- NOTE | 2016-11-22 08:54 | PN ---
Progress Note, Physician Chief Complaint: no complaints Feels well - Current Medication List Current Medications: Active Medications Acetaminophen (Tylenol -) 650 mg PO Q4H PRN PRN Reason: PAIN Stop: 11/23/16 19:44 Last Admin: 11/22/16 06:38 Dose: 650 mg Clonazepam (Klonopin -) 1 mg PO TID PRN PRN Reason: ANXIETY Last Admin: 11/21/16 21:10 Dose: 1 mg Doxepin HCl (Sinequan -) 50 mg PO HS [facility] Last Admin: 11/21/16 21:10 Dose: 50 mg Sodium Chloride (Normal Saline -) 1,000 mls @ 125 mls/hr IV ASDIR [facility] Last Admin: 11/22/16 05:47 Dose: 125 mls/hr Lisinopril (Prinivil) 10 mg PO DAILY [facility] Last Admin: 11/21/16 09:36 Dose: 10 mg Oxycodone HCl (Roxicodone -) 10 mg PO Q8H PRN PRN Reason: PAIN Last Admin: 11/22/16 06:39 Dose: 10 mg Pantoprazole Sodium (Protonix -) 40 mg PO DAILY [facility] Last Admin: 11/21/16 09:35 Dose: 40 mg Venlafaxine HCl (Effexor Xr -) 300 mg PO DAILY [facility] Last Admin: 11/21/16 10:53 Dose: 300 mg - Objective Vital Signs: Vital Signs Temperature 98.4 F 11/22/16 06:00 Pulse Rate 81 11/22/16 06:00 Respiratory Rate 20 11/22/16 06:00 Blood Pressure 125/78 11/22/16 06:00 O2 Sat by Pulse Oximetry (%) 96 11/21/16 09:00 Constitutional: Yes: No Distress Cardiovascular: Yes: Regular Rate and Rhythm Respiratory: Yes: CTA Bilaterally Gastrointestinal: Yes: Soft (nontender) Edema: No Neurological: Yes: Alert, Oriented Labs: CBC, BMP 11/22/16 07:30 INR, PTT INR 1.08 (0.82-1.09) 11/20/16 14:00 Laboratory Tests 11/20/16 11/22/16 11/22/16 14:00 07:30 07:30 WBC 11.5 H Hgb 8.8 L Plt Count 419 Potassium Pending Creatinine Pending Stool Occult Blood Positive Assessment/Plan Assessment/Plan 56 year old man with a history of smoking, mild non-obstructive CAD on cardiac cath 07/2015, admitted with chest pain and sob, found to have imaging c/w metastatic malignancy. Pt seen and examined today in nad. anxious appearing. no current complaints. no further chest pain or sob since admission. states that he had an argument yesterday while doing some yardwork and this is when his symptoms began and included palpitations. no pnd, orthopnea, or le edema. no lightheadedness, dizziness, syncope, or near syncope. Of note pt was admitted here 07/2015 for chest pain and had an abnormal nuclear stress test, he then was transferred to [facility] where cardiac cath showed only very mild non-obs CAD. Chest pain/SOB-atypical, unlikely cardiac in origin, likely related to metastatic malignancy -cardiac cath reviewed from [facility] 07/2015, mild non-obstructive CAD involving mLAD -cardiac enzymes wnl -ekg showed no ischemia -echo from 07/2015 showed overall normal structural heart -repeat echo yesterday- no pericardial effusion. -no additional ischemic work up is needed at this point -malignancy work up in progress -hold any anti-platelets, presume procedures will be needed
[2016-11-22] MEDS ORDERED: PT OWN MED DRAWER 7, Y5N ONE ×2 (09:08→20:36)
[2016-11-22] MEDS: PANTOPRAZOLE 40 MG TABLET (FP) PO SCH (09:11)
[2016-11-22] MEDS: LISINOPRIL 10 MG TABLET (FP) PO SCH (09:11)
[2016-11-22] MEDS: VENLAFAXINE HCL 75 MG E.R. CAPSULES (FP) PO SCH (09:11)
[2016-11-22 09:15] LABS: ALBUMIN 2.3 g/dl (3.4-5.0); ANION GAP 7 (8-16); BLOOD UREA NITROGEN 10 mg/dL (7-18); CALCIUM 8.1 mg/dL (8.5-10.1); CHLORIDE 108 mmol/L (98-107); CO2 26 mmol/L (21-32); CREATININE 0.6 mg/dL (0.7-1.3); GLUCOSE,RANDOM 121 mg/dL (74-106); POTASSIUM 4.2 mmol/L (3.5-5.1); SGOT/AST 7 U/L (15-37); SGPT/ALT 18 U/L (12-78); SODIUM 141 mmol/L (136-145); URIC ACID 5.3 mg/dL (2.6-7.2)
[2016-11-22 09:17] LABS: ALK PHOS 58 U/L (45-117); BILIRUBIN,TOTAL 0.3 mg/dL (0.2-1.0); LDH 175 U/L (87-241); TOT PROT 5.2 g/dl (6.4-8.2)
--- NOTE | 2016-11-22 09:50 | HP ---
DATE OF ADMISSION: DATE OF DICTATION: 11/21/2016 HISTORY OF PRESENT ILLNESS: This patient is a [id number], a patient of Dr. Stevens, was admitted to the hospital when he presented to the emergency room yesterday with complaints of shortness of breath and chest pain. Patient reported that he was cleaning the house and then went to take a rest and then he experienced chest pain and shortness of breath. Patient also reported that he had some argument with his neighbor and that also . Patient also tells that he has noted dark stool a few days ago, and he was prescribed Protonix by his PMD. Patient was also referred to GI, Dr. Grullon, for the evaluation of blood in the stools. PAST MEDICAL HISTORY: Significant for anxiety, depression, atherosclerotic heart disease, positive stress test in 2016 and after that he had cardiac catheterization done at [facility] which was reported to be essentially okay. It only showed mild nonobstructive coronary artery disease. Workup in the emergency room showed that patient had metastases to abdomen, lung nodules, and extensive intrathoracic intraabdominal and pelvic lymph node metastasis as well as mesenteric lymph nodes in the subcutaneous fat of bilateral gluteal region as well as subcutaneous fat of rectus abdominis musculature. A 1.4-cm left retinal nodule also seen, which may be metastatic. It also commented that patient has right renal mass likely primary. Patients other past medical history was significant for bilateral knee replacement as well as left inguinal hernia repair. SOCIAL HISTORY: Patient smokes three cigarettes a day. Patient denies drinking or drugs. PERSONAL HISTORY: He lives with his son. FAMILY HISTORY: Nothing contributory. Other past medical history significant for hypertension. ALLERGIES: He has no known allergies. MEDICATIONS: Patients medications at home are Klonopin, Effexor, lisinopril, omeprazole, and doxepin as well as Percocet on p.r.n. basis. REVIEW OF SYMPTOMS: As I said, positive for chest pain, shortness of breath, and blood in the stools a few days ago. PHYSICAL EXAMINATION: General: Patient was seen by me on the floor, and he has crying spells with the diagnosis. Patient tells me that he was told in the ER that he likely has cancer, and he is worried about that. Neck: Supple. Lungs: Clear. Heart: Heart sounds are regular. Abdomen: Soft, nontender. Extremities: No edema. Neurological: He is alert and awake nonfocal exam. Secondary, he is awake, oriented x3, and has weeping spells. LABORATORY WORK: CBC showed white count 16.3 yesterday and 14.3 today, hemoglobin 9.7, hematocrit 29.8 with platelets of 453. INR is 1.08. Electrolytes are essentially within normal limits except glucose is 121 today and calcium 8.4. Urine is negative. Stool for occult blood is positive. CAT scan and chest CT as I mentioned before. EKG showed normal sinus rhythm, no acute changes. Cardiac enzymes were negative. ASSESSMENT AND PLAN: Patient is a 56-year-old gentleman with extensive past medical history as mentioned is admitted due to atypical chest pain. . Troponins negative. Likely renal cell cancer, which is primary, but workup needs to be done. I discussed with Cardiology as well as Pulmonary. They will follow the patient. Patient will need lymph node biopsy. Oncology also to follow. I also requested a psychiatric consult. Further recommendations will be guided by clinical course. JOSEPH ROJAS M.D. [id number]
--- NOTE | 2016-11-22 10:36 | PN ---
Progress Note, Physician Chief Complaint: for lymph node biopsy today - Current Medication List Current Medications: Active Medications Acetaminophen (Tylenol -) 650 mg PO Q4H PRN PRN Reason: PAIN Stop: 11/23/16 19:44 Last Admin: 11/22/16 06:38 Dose: 650 mg Clonazepam (Klonopin -) 1 mg PO TID PRN PRN Reason: ANXIETY Last Admin: 11/21/16 21:10 Dose: 1 mg Doxepin HCl (Sinequan -) 50 mg PO HS [facility] Last Admin: 11/21/16 21:10 Dose: 50 mg Sodium Chloride (Normal Saline -) 1,000 mls @ 125 mls/hr IV ASDIR [facility] Last Admin: 11/22/16 05:47 Dose: 125 mls/hr Lisinopril (Prinivil) 10 mg PO DAILY [facility] Last Admin: 11/22/16 09:11 Dose: 10 mg Oxycodone HCl (Roxicodone -) 10 mg PO Q8H PRN PRN Reason: PAIN Last Admin: 11/22/16 06:39 Dose: 10 mg Pantoprazole Sodium (Protonix -) 40 mg PO DAILY [facility] Last Admin: 11/22/16 09:11 Dose: 40 mg Venlafaxine HCl (Effexor Xr -) 300 mg PO DAILY [facility] Last Admin: 11/22/16 09:11 Dose: 300 mg - Objective Vital Signs: Vital Signs Temperature 98.4 F 11/22/16 06:00 Pulse Rate 76 11/22/16 10:31 Respiratory Rate 13 11/22/16 10:31 Blood Pressure 105/66 11/22/16 10:31 O2 Sat by Pulse Oximetry (%) 98 11/22/16 10:31 Constitutional: Yes: No Distress Cardiovascular: Yes: Regular Rate and Rhythm Respiratory: Yes: CTA Bilaterally Gastrointestinal: Yes: Normal Bowel Sounds, Soft. No: Tenderness Edema: No Labs: CBC, BMP 11/22/16 07:30 11/22/16 07:30 INR, PTT INR 1.08 (0.82-1.09) 11/20/16 14:00 Problem List - Problems (1) GI bleeding Code(s): K92.2 - GASTROINTESTINAL HEMORRHAGE, UNSPECIFIED Qualifiers: GI bleed type/associated pathology: melena Qualified Code(s): K92.1 - Melena (2) Metastatic neoplastic disease Code(s): C79.9 - SECONDARY MALIGNANT NEOPLASM OF UNSPECIFIED SITE (3) SOB (shortness of breath) Code(s): R06.02 - SHORTNESS OF BREATH (4) Chest pain Code(s): R07.9 - CHEST PAIN, UNSPECIFIED Qualifiers: Chest pain type: unspecified Qualified Code(s): R07.9 - Chest pain, unspecified (5) HTN (hypertension) Code(s): I10 - ESSENTIAL (PRIMARY) HYPERTENSION Qualifiers: Hypertension type: essential hypertension Qualified Code(s): I10 - Essential (primary) hypertension Assessment/Plan CT scans noted for lymph node biopsy today will need tissue diagnosis for further treatments
--- NOTE | 2016-11-22 16:01 | PN ---
Progress Note (short form) - Note Progress Note: S/P LN biopsy. Reports feeling better today. No CP or SOB. Intake & Output 11/19/16 11/20/16 11/21/16 11/22/16 23:59 23:59 23:59 23:59 Intake Total 800 2975 600 Balance 800 2975 600 Weight 200 lb Last Vital Signs Temp Pulse Resp BP Pulse Ox 98.4 F 88 18 122/81 97 11/22/16 13:36 11/22/16 13:36 11/22/16 13:36 11/22/16 13:36 11/22/16 10:41 Active Medications Acetaminophen (Tylenol -) 650 mg PO Q4H PRN PRN Reason: PAIN Stop: 11/23/16 19:44 Last Admin: 11/22/16 15:39 Dose: 650 mg Clonazepam (Klonopin -) 1 mg PO TID PRN PRN Reason: ANXIETY Last Admin: 11/21/16 21:10 Dose: 1 mg Doxepin HCl (Sinequan -) 50 mg PO HS [facility] Last Admin: 11/21/16 21:10 Dose: 50 mg Sodium Chloride (Normal Saline -) 1,000 mls @ 125 mls/hr IV ASDIR [facility] Last Admin: 11/22/16 05:47 Dose: 125 mls/hr Lisinopril (Prinivil) 10 mg PO DAILY [facility] Last Admin: 11/22/16 09:11 Dose: 10 mg Oxycodone HCl (Roxicodone -) 10 mg PO Q8H PRN PRN Reason: PAIN Last Admin: 11/22/16 15:40 Dose: 10 mg Pantoprazole Sodium (Protonix -) 40 mg PO DAILY [facility] Last Admin: 11/22/16 09:11 Dose: 40 mg Venlafaxine HCl (Effexor Xr -) 300 mg PO DAILY [facility] Last Admin: 11/22/16 09:11 Dose: 300 mg Constitutional: Yes: No Distress Eyes: Yes: Conjunctiva Clear, EOM Intact HENT: Yes: Atraumatic, Normocephalic Neck: Yes: Supple, Trachea Midline Cardiovascular: Yes: Regular Rate and Rhythm Respiratory: Yes: Regular, CTA Bilaterally ...Inspection: Yes: WNL ...Clubbing: No Gastrointestinal: Yes: Normal Bowel Sounds, Soft Renal/: Yes: WNL Musculoskeletal: Yes: WNL Extremities: Yes: WNL Edema: No Peripheral Pulses WNL: Yes Integumentary: Yes: WNL Neurological: Yes: WNL, Alert, Cran Nerves II-XII Intact ...Motor Strength: WNL Psychiatric: Yes: Alert, Oriented, Non-focal Labs: Laboratory Results - last 24 hr 11/21/16 11/22/16 11/22/16 21:00 07:30 07:30 WBC 11.5 H RBC 3.52 L Hgb 8.8 L Hct 27.1 L MCV 76.9 L MCH 25.0 L MCHC 32.6 RDW 14.3 Plt Count 419 MPV 6.9 L Neutrophils % 75.1 Lymphocytes % 18.0 Monocytes % 5.6 Eosinophils % 0.7 Basophils % 0.6 ESR Sodium 141 Potassium 4.2 Chloride 108 H Carbon Dioxide 26 Anion Gap 7 L BUN 10 D Creatinine 0.6 L Creat Clearance w eGFR > 60 Random Glucose 121 H Uric Acid 5.3 Calcium 8.1 L Ferritin Total Bilirubin 0.3 D AST 7 L D ALT 18 Alkaline Phosphatase 58 LD Total 175 Total Protein 5.2 L Albumin 2.3 L Urine Color Ltyellow Urine Appearance Clear Urine pH 5.0 Ur Specific Success 1.020 Urine Protein Negative Urine Glucose (UA) Negative Urine Ketones Negative Urine Blood 2+ H Urine Nitrite Negative Urine Bilirubin Negative Urine Urobilinogen Negative Urine RBC 1 Urine WBC <1 Urine Mucus Rare HIV 1&2 Antibody Screen HIV P24 Antigen 11/22/16 11/22/16 11/22/16 07:30 07:30 07:30 WBC RBC Hgb Hct MCV MCH MCHC RDW Plt Count MPV Neutrophils % Lymphocytes % Monocytes % Eosinophils % Basophils % ESR 76 H Sodium Potassium Chloride Carbon Dioxide Anion Gap BUN Creatinine Creat Clearance w eGFR Random Glucose Uric Acid Calcium Ferritin 102.970 Total Bilirubin AST ALT Alkaline Phosphatase LD Total Total Protein Albumin Urine Color Urine Appearance Urine pH Ur Specific Success Urine Protein Urine Glucose (UA) Urine Ketones Urine Blood Urine Nitrite Urine Bilirubin Urine Urobilinogen Urine RBC Urine WBC Urine Mucus HIV 1&2 Antibody Screen Negative HIV P24 Antigen Negative Problem List - Problems (1) GI bleeding Code(s): K92.2 - GASTROINTESTINAL HEMORRHAGE, UNSPECIFIED Qualifiers: GI bleed type/associated pathology: melena Qualified Code(s): K92.1 - Melena (2) Metastatic neoplastic disease Code(s): C79.9 - SECONDARY MALIGNANT NEOPLASM OF UNSPECIFIED SITE (3) SOB (shortness of breath) Code(s): R06.02 - SHORTNESS OF BREATH (4) Chest pain Code(s): R07.9 - CHEST PAIN, UNSPECIFIED Qualifiers: Chest pain type: unspecified Qualified Code(s): R07.9 - Chest pain, unspecified (5) HTN (hypertension) Code(s): I10 - ESSENTIAL (PRIMARY) HYPERTENSION Qualifiers: Hypertension type: essential hypertension Qualified Code(s): I10 - Essential (primary) hypertension (6) Osteoarthritis Code(s): M19.90 - UNSPECIFIED OSTEOARTHRITIS, UNSPECIFIED SITE Qualifiers: Osteoarthritis location: hip Osteoarthritis type: unspecified Laterality: bilateral Qualified Code(s): M16.0 - Bilateral primary osteoarthritis of hip (7) Smoking Code(s): F17.200 - NICOTINE DEPENDENCE, UNSPECIFIED, UNCOMPLICATED Assessment/Plan Await biopsy report VTE prophylaxis O2 needed Dr Simpson Problem List - Problems (1) GI bleeding Code(s): K92.2 - GASTROINTESTINAL HEMORRHAGE, UNSPECIFIED Qualifiers: GI bleed type/associated pathology: melena Qualified Code(s): K92.1 - Melena (2) Metastatic neoplastic disease Code(s): C79.9 - SECONDARY MALIGNANT NEOPLASM OF UNSPECIFIED SITE (3) SOB (shortness of breath) Code(s): R06.02 - SHORTNESS OF BREATH (4) Chest pain Code(s): R07.9 - CHEST PAIN, UNSPECIFIED Qualifiers: Chest pain type: unspecified Qualified Code(s): R07.9 - Chest pain, unspecified (5) HTN (hypertension) Code(s): I10 - ESSENTIAL (PRIMARY) HYPERTENSION Qualifiers: Hypertension type: essential hypertension Qualified Code(s): I10 - Essential (primary) hypertension (6) Osteoarthritis Code(s): M19.90 - UNSPECIFIED OSTEOARTHRITIS, UNSPECIFIED SITE Qualifiers: Osteoarthritis location: hip Osteoarthritis type: unspecified Laterality: bilateral Qualified Code(s): M16.0 - Bilateral primary osteoarthritis of hip (7) Smoking Code(s): F17.200 - NICOTINE DEPENDENCE, UNSPECIFIED, UNCOMPLICATED
--- NOTE | 2016-11-22 19:11 | PN ---
GI Progress Note Subjective: Awake, alert, anxious - Objective Vital Signs: Vital Signs Temperature 98.5 F 11/22/16 18:00 Pulse Rate 81 11/22/16 18:00 Respiratory Rate 18 11/22/16 18:00 Blood Pressure 112/75 11/22/16 18:00 O2 Sat by Pulse Oximetry (%) 97 11/22/16 10:41 Constitutional: Well Nourished, Anxious HENT: Yes: Normocephalic Cardiovascular: Yes: Regular Rate and Rhythm Respiratory: Yes: CTA Bilaterally Gastrointestinal Inspection: Yes: WNL ...Auscultate: Yes: Normoactive Bowel Sounds ...Palpate: Yes: Soft. No: Tenderness Labs: CBC, BMP 11/22/16 07:30 11/22/16 07:30 INR, PTT INR 1.08 (0.82-1.09) 11/20/16 14:00 - ....Imaging Cat Scan: Report Reviewed ( noted earlier.) Assessment/Plan 56 M with what looks like newly diagnosed diffusely metastatic cancer. History of recent rectal bleeding suggests possible colon ca Patient already had biopsy today Will sched prep for tomorrow and colon on AM Tumor markers sent-pending
[2016-11-22] MEDS ORDERED: BISACODYL 5 MG TABLET.DR (FP) PO SCH (19:30)
[2016-11-22] MEDS ORDERED: BISACODYL 5 MG TABLET.DR (FP) PO ONE (20:00)
[2016-11-22] MEDS: DOXEPIN HCL 25 MG CAPSULE PO SCH (21:07)
[2016-11-22] MEDS: clonazePAM 0.5 MG TABLET PO PRN (21:07)
[2016-11-23] MEDS: oxyCODONE HCL 5 MG TABLET PO PRN ×2 (05:52→14:43)
[2016-11-23] MEDS: ACETAMINOPHEN 325 MG TABLET (FP) PO PRN ×2 (05:53→14:42)
[2016-11-23 06:11] LABS: HBSAG SCREEN Negative (Negative); HEP B CORE AB, TOT Negative (Negative)
[2016-11-23 08:07] LABS: SERUM IRON SATURATION 11 % (15-55); TOTAL IRON BINDING CAPACITY 200 ug/dL (250-450); UIBC 178 ug/dL (111-343)
[2016-11-23 08:31] LABS: HEMATOCRIT 28.2 % (35.4-49); HEMOGLOBIN 9.3 GM/dL (11.7-16.9); MCH 25.2 pg (25.7-33.7); MEAN CELL VOLUME 76.4 fl (80-96); PLATELET COUNT 460 K/MM3 (134-434); WHITE BLOOD COUNT 12.3 K/mm3 (4.0-10.0)
--- NOTE | 2016-11-23 08:52 | PN ---
Progress Note, Physician Chief Complaint: no further chest pain s/p biopsy yesterday - Current Medication List Current Medications: Active Medications Acetaminophen (Tylenol -) 650 mg PO Q4H PRN PRN Reason: PAIN Stop: 11/23/16 19:44 Last Admin: 11/23/16 05:53 Dose: 650 mg Bisacodyl (Dulcolax -) 10 mg PO ONCE ONE Stop: 11/23/16 16:01 Bisacodyl (Dulcolax -) 10 mg PO ONCE ONE Stop: 11/23/16 20:01 Clonazepam (Klonopin -) 1 mg PO TID PRN PRN Reason: ANXIETY Last Admin: 11/22/16 21:07 Dose: 1 mg Doxepin HCl (Sinequan -) 50 mg PO [facility] Last Admin: 11/22/16 21:07 Dose: 50 mg Lisinopril (Prinivil) 10 mg PO DAILY [facility] Last Admin: 11/22/16 09:11 Dose: 10 mg Oxycodone HCl (Roxicodone -) 10 mg PO Q8H PRN PRN Reason: PAIN Last Admin: 11/23/16 05:52 Dose: 10 mg Pantoprazole Sodium (Protonix -) 40 mg PO DAILY [facility] Last Admin: 11/22/16 09:11 Dose: 40 mg Polyethylene Glycol (Miralax (For Bowel Prep) -) 255 gm PO ONCE ONE Stop: 11/23/16 16:01 Sodium Phosphate (Fleet Adult Rectal Enema -) 133 ml IN ONCE ONE Stop: 11/24/16 06:01 Venlafaxine HCl (Effexor Xr -) 300 mg PO DAILY [facility] Last Admin: 11/22/16 09:11 Dose: 300 mg - Objective Vital Signs: Vital Signs Temperature 99.5 F 11/23/16 06:00 Pulse Rate 79 11/23/16 06:00 Respiratory Rate 18 11/23/16 06:00 Blood Pressure 140/79 11/23/16 06:00 O2 Sat by Pulse Oximetry (%) 97 11/22/16 21:00 Constitutional: Yes: Calm Cardiovascular: Yes: Regular Rate and Rhythm Respiratory: Yes: CTA Bilaterally Gastrointestinal: Yes: Soft (NT) Edema: No Neurological: Yes: Alert, Oriented Labs: CBC, BMP 11/23/16 07:18 INR, PTT INR 1.08 (0.82-1.09) 11/20/16 14:00 Laboratory Tests 11/22/16 11/23/16 11/23/16 07:30 07:18 07:18 WBC 12.3 H Hgb 9.3 L Plt Count 460 H Potassium Pending Creatinine Pending CA 19-9 Antigen Pending Assessment/Plan Radiographic metastatic CA Atypical CP/epigastric pain likely secondary to above s/p biopsy REC: Normal LV fxn, negative cardiac enzymes; no further work up is indicated at this time. Suspect his discomfort, now resolved, due to disease in abdomen Further w/u as per PMD, GI and Oncology Please call again as/if needed. Will sign off today. Thanks.
[2016-11-23 09:02] LABS: BILIRUBIN,TOTAL 0.2 mg/dL (0.2-1.0); CALCIUM 8.4 mg/dL (8.5-10.1); CHLORIDE 104 mmol/L (98-107); POTASSIUM 4.5 mmol/L (3.5-5.1); SGOT/AST 5 U/L (15-37); SGPT/ALT 16 U/L (12-78); SODIUM 139 mmol/L (136-145); TOT PROT 5.6 g/dl (6.4-8.2)
[2016-11-23 09:07] LABS: ALBUMIN 2.4 g/dl (3.4-5.0); ALK PHOS 62 U/L (45-117); ANION GAP 6 (8-16); BLOOD UREA NITROGEN 12 mg/dL (7-18); CO2 29 mmol/L (21-32); CREATININE 0.7 mg/dL (0.7-1.3); GLUCOSE,RANDOM 91 mg/dL (74-106)
[2016-11-23] MEDS ORDERED: PT OWN MED DRAWER 7, Y5N ONE ×2 (10:21→10:28)
[2016-11-23] MEDS: LISINOPRIL 10 MG TABLET (FP) PO SCH (10:36)
[2016-11-23] MEDS: VENLAFAXINE HCL 75 MG E.R. CAPSULES (FP) PO SCH (10:36)
[2016-11-23] MEDS: PANTOPRAZOLE 40 MG TABLET (FP) PO SCH (10:36)
--- NOTE | 2016-11-23 11:29 | PN ---
Progress Note (short form) - Note Progress Note: Patient seen and examined Cor: RSR, No murmurs, No gallops Lungs: Clear to P&A Abd: Soft, Normal bowel sounds, No organomegaly Ext:No significant edema cervical adenopathy Temp Pulse Resp BP Pulse Ox 99.5 F 79 18 140/79 97 11/23/16 06:00 11/23/16 06:00 11/23/16 06:00 11/23/16 06:00 11/22/16 21:00 Current Medications Generic Name Dose Route Start Last Admin Trade Name Freq PRN Reason Stop Dose Admin Acetaminophen 650 mg 11/21/16 10:21 11/23/16 05:53 Tylenol - PO 11/23/16 19:44 650 mg Q4H PRN Administration PAIN Bisacodyl 10 mg 11/23/16 16:00 Dulcolax - PO 11/23/16 16:01 ONCE ONE Bisacodyl 10 mg 11/23/16 20:00 Dulcolax - PO 11/23/16 20:01 ONCE ONE Clonazepam 1 mg 11/20/16 21:19 11/22/16 21:07 Klonopin - PO 1 mg TID PRN Administration ANXIETY Doxepin HCl 50 mg 11/20/16 22:00 11/22/16 21:07 Sinequan - PO 50 mg HS KATELYN Administration Lisinopril 10 mg 11/21/16 10:00 11/23/16 10:36 Prinivil PO 10 mg DAILY KATELYN Administration Oxycodone HCl 10 mg 11/20/16 19:45 11/23/16 05:52 Roxicodone - PO 10 mg Q8H PRN Administration PAIN Pantoprazole Sodium 40 mg 11/21/16 10:00 11/23/16 10:36 Protonix - PO 40 mg DAILY K[facility] Administration Polyethylene Glycol 255 gm 11/23/16 16:00 Miralax (For Bowel Prep) - PO 11/23/16 16:01 ONCE ONE Sodium Phosphate 133 ml 11/24/16 06:00 Fleet Adult Rectal Enema - CA 11/24/16 06:01 ONCE ONE Venlafaxine HCl 300 mg 11/21/16 10:00 11/23/16 10:36 Effexor Xr - PO 300 mg DAILY [facility] Administration CBC, BMP 11/23/16 07:18 11/23/16 07:18 56 y/o patient smoker, s/p Lt. inguinal hernia repair, s/p b/lTKR comes in with fatigue, weakness, melaena No fever/night sweats/wt. loss CT scan --mediastinal adenopathy/intraabdomina;l adenopathy, renal mass, pancreatic soft tissue mass, peritoneal implants Aslo with cervical adenopathy Clinical scenario suspicious for widely metastatic disease CEA/Ca19.9/LDH wnl primary to be known. GI vs Renal vs Pancreatic will await path of LN. Will d/w Pathology d/w
--- NOTE | 2016-11-23 11:45 | PN ---
Progress Note, Physician Chief Complaint: s/p lymph node biospy No complaints anxious - Current Medication List Current Medications: Active Medications Acetaminophen (Tylenol -) 650 mg PO Q4H PRN PRN Reason: PAIN Stop: 11/23/16 19:44 Last Admin: 11/23/16 05:53 Dose: 650 mg Bisacodyl (Dulcolax -) 10 mg PO ONCE ONE Stop: 11/23/16 16:01 Bisacodyl (Dulcolax -) 10 mg PO ONCE ONE Stop: 11/23/16 20:01 Clonazepam (Klonopin -) 1 mg PO TID PRN PRN Reason: ANXIETY Last Admin: 11/22/16 21:07 Dose: 1 mg Doxepin HCl (Sinequan -) 50 mg PO [facility] Last Admin: 11/22/16 21:07 Dose: 50 mg Lisinopril (Prinivil) 10 mg PO DAILY [facility] Last Admin: 11/23/16 10:36 Dose: 10 mg Oxycodone HCl (Roxicodone -) 10 mg PO Q8H PRN PRN Reason: PAIN Last Admin: 11/23/16 05:52 Dose: 10 mg Pantoprazole Sodium (Protonix -) 40 mg PO DAILY [facility] Last Admin: 11/23/16 10:36 Dose: 40 mg Polyethylene Glycol (Miralax (For Bowel Prep) -) 255 gm PO ONCE ONE Stop: 11/23/16 16:01 Sodium Phosphate (Fleet Adult Rectal Enema -) 133 ml [place] ONCE ONE Stop: 11/24/16 06:01 Venlafaxine HCl (Effexor Xr -) 300 mg PO DAILY [facility] Last Admin: 11/23/16 10:36 Dose: 300 mg - Objective Vital Signs: Vital Signs Temperature 99.5 F 11/23/16 06:00 Pulse Rate 79 11/23/16 06:00 Respiratory Rate 18 11/23/16 06:00 Blood Pressure 140/79 11/23/16 06:00 O2 Sat by Pulse Oximetry (%) 97 11/22/16 21:00 Constitutional: Yes: Anxious Cardiovascular: Yes: Regular Rate and Rhythm Respiratory: Yes: CTA Bilaterally Gastrointestinal: Yes: Normal Bowel Sounds, Soft, Other (lymph node biopsy site - no infection). No: Distention, Tenderness Edema: No Labs: CBC, BMP 11/23/16 07:18 11/23/16 07:18 INR, PTT INR 1.08 (0.82-1.09) 11/20/16 14:00 Problem List - Problems (1) GI bleeding Code(s): K92.2 - GASTROINTESTINAL HEMORRHAGE, UNSPECIFIED Qualifiers: GI bleed type/associated pathology: melena Qualified Code(s): K92.1 - Melena (2) Metastatic neoplastic disease Code(s): C79.9 - SECONDARY MALIGNANT NEOPLASM OF UNSPECIFIED SITE (3) SOB (shortness of breath) Code(s): R06.02 - SHORTNESS OF BREATH (4) Chest pain Code(s): R07.9 - CHEST PAIN, UNSPECIFIED Qualifiers: Chest pain type: unspecified Qualified Code(s): R07.9 - Chest pain, unspecified (5) HTN (hypertension) Code(s): I10 - ESSENTIAL (PRIMARY) HYPERTENSION Qualifiers: Hypertension type: essential hypertension Qualified Code(s): I10 - Essential (primary) hypertension Assessment/Plan PLAN spoke with Oncology tomorrow colonoscopy tumor markers negative await pathology results
[2016-11-23] MEDS: clonazePAM 0.5 MG TABLET PO PRN ×2 (12:30→20:20)
--- NOTE | 2016-11-23 13:23 | PN ---
Progress Note, Physician History of Present Illness: PULMONARY ALERT,NO DISTRESS,-SOB,-CP - Current Medication List Current Medications: Active Medications Acetaminophen (Tylenol -) 650 mg PO Q4H PRN PRN Reason: PAIN Stop: 11/23/16 19:44 Last Admin: 11/23/16 05:53 Dose: 650 mg Bisacodyl (Dulcolax -) 10 mg PO ONCE ONE Stop: 11/23/16 16:01 Bisacodyl (Dulcolax -) 10 mg PO ONCE ONE Stop: 11/23/16 20:01 Clonazepam (Klonopin -) 1 mg PO TID PRN PRN Reason: ANXIETY Last Admin: 11/23/16 12:30 Dose: 1 mg Doxepin HCl (Sinequan -) 50 mg PO HS [facility] Last Admin: 11/22/16 21:07 Dose: 50 mg Lisinopril (Prinivil) 10 mg PO DAILY [facility] Last Admin: 11/23/16 10:36 Dose: 10 mg Oxycodone HCl (Roxicodone -) 10 mg PO Q8H PRN PRN Reason: PAIN Last Admin: 11/23/16 05:52 Dose: 10 mg Pantoprazole Sodium (Protonix -) 40 mg PO DAILY [facility] Last Admin: 11/23/16 10:36 Dose: 40 mg Polyethylene Glycol (Miralax (For Bowel Prep) -) 255 gm PO ONCE ONE Stop: 11/23/16 16:01 Sodium Phosphate (Fleet Adult Rectal Enema -) 133 ml [place] ONCE ONE Stop: 11/24/16 06:01 Venlafaxine HCl (Effexor Xr -) 300 mg PO DAILY [facility] Last Admin: 11/23/16 10:36 Dose: 300 mg - Objective Vital Signs: Vital Signs Temperature 99.5 F 11/23/16 06:00 Pulse Rate 73 11/23/16 10:00 Respiratory Rate 18 11/23/16 10:00 Blood Pressure 117/70 11/23/16 10:00 O2 Sat by Pulse Oximetry (%) 97 11/22/16 21:00 Constitutional: Yes: Well Nourished, Calm Eyes: Yes: WNL HENT: Yes: WNL Neck: Yes: WNL Cardiovascular: Yes: Regular Rate and Rhythm, S1, S2 Respiratory: Yes: CTA Bilaterally Gastrointestinal: Yes: Normal Bowel Sounds, Soft Extremities: Yes: WNL Edema: No Labs: CBC, BMP 11/23/16 07:18 11/23/16 07:18 INR, PTT INR 1.08 (0.82-1.09) 11/20/16 14:00 Assessment/Plan Problem List - Problems (1) GI bleeding Code(s): K92.2 - GASTROINTESTINAL HEMORRHAGE, UNSPECIFIED Qualifiers: GI bleed type/associated pathology: melena Qualified Code(s): K92.1 - Melena (2) Metastatic neoplastic disease Code(s): C79.9 - SECONDARY MALIGNANT NEOPLASM OF UNSPECIFIED SITE (3) SOB (shortness of breath) Code(s): R06.02 - SHORTNESS OF BREATH (4) Chest pain Code(s): R07.9 - CHEST PAIN, UNSPECIFIED Qualifiers: Chest pain type: unspecified Qualified Code(s): R07.9 - Chest pain, unspecified (5) HTN (hypertension) Code(s): I10 - ESSENTIAL (PRIMARY) HYPERTENSION Qualifiers: Hypertension type: essential hypertension Qualified Code(s): I10 - Essential (primary) hypertension (6) Osteoarthritis Code(s): M19.90 - UNSPECIFIED OSTEOARTHRITIS, UNSPECIFIED SITE Qualifiers: Osteoarthritis location: hip Osteoarthritis type: unspecified Laterality: bilateral Qualified Code(s): M16.0 - Bilateral primary osteoarthritis of hip (7) Smoking Code(s): F17.200 - NICOTINE DEPENDENCE, UNSPECIFIED, UNCOMPLICATED Assessment/Plan Await biopsy report VTE prophylaxis O2 needed DR PIERSON
--- NOTE | 2016-11-23 13:41 | PATH ---
Cytology Non-Gynecological Report Patient Name: BRANDEN BILL [facility]. Rec. #: [id number] /Age/Gender: 1960 (Age: 56) / M Account: [id number] Location: [address] [place] [address] Taken: 11/22/2016 Received: 11/22/2016 Reported: 11/23/2016 Physicians: Daniel Tanner M.D. Smitha Mellacheruvu, M.D. Frederick Fallick, M.D. Specimen(s) Received PERITONEAL FLUID Clinical History None given Final Diagnosis ABDOMINAL COLLECTION, EVACUATION: NON-DIAGNOSTIC SPECIMEN. NECROTIC MATERIAL, BLOOD, AND SCATTERED WHITE BLOOD CELLS PRESENT. NO VIABLE NEOPLASTIC MATERIAL IDENTIFIED. Comment: Recommend correlation with clinical and radiologic findings and follow up as clinically indicated. See also [id number]. Electronically Signed Negro Cano M.D. Gross Description Approximately 20 cc of bloody fluid received fixed in 50% alcohol. Two cytofunnels and one cellblock prepared.
--- NOTE | 2016-11-23 13:44 | PATH ---
Surgical Pathology Report Patient Name: BRANDEN BILL [facility]. Rec. #: [id number] /Age/Gender: 1960 (Age: 56) / M Account: [id number] Location: [address] [place] [address]/[facility] Taken: 11/22/2016 Received: 11/22/2016 Reported: 11/23/2016 Physicians: Capo Garcia M.D. Daniel Davis M.D. Frederick Fallick, M.D. Specimen(s) Received LOWER ABDOMINAL PERITONEAL BIOPSY Clinical History 56 year-old with right renal mass with innumerable lung and peritoneal masses Final Diagnosis LOWER ABDOMINAL PERITONEAL NEEDLE CORE BIOPSY: SCANT BENIGN FIBROUS TISSUE, AND NECROTIC MATERIAL. NO VIABLE NEOPLASTIC CELLS IDENTIFIED. Comment: Flow cytometry performed and interpreted at [facility] [place], [place] ([id number]) shows the following interpretation: "Limited sample with decreased viability, suboptimal for evaluation; clonal B-cell populations are not detected." Recommend correlation with clinical and radiologic findings and follow up as clinically indicated. See also [id number]. Electronically Signed Negro Cano M.D. Gross Description Received in formalin labelled "abdominal lymph node biopsy" is multiple filaments of delarosa tissue each of which is 0.1 cm in diameter and up to 0.6 cm in length. Totally submitted in one cassette. Also received is additional tissue in RPMI which is sent to [facility] [place], [place] for flow cytometry studies. [facility]/11/22/2016 [facility]/11/22/2016
[2016-11-23] MEDS ORDERED: POLYETHYLENE GLYCOL 3350 255 GM BTL PO ONE (16:00)
[2016-11-23] MEDS ORDERED: BISACODYL 5 MG TABLET.DR (FP) PO ONE ×2 (16:00→20:00)
[2016-11-23] MEDS: DOXEPIN HCL 25 MG CAPSULE PO SCH (21:34)
--- NOTE | 2016-11-23 22:38 | CONSULT ---
Consult - text type - Consultation Consultation Note: Attempted to see patient, but sleeping soundly. Will see in am. Full consult to follow.
[2016-11-23] MEDS ORDERED: clonazePAM 0.5 MG TABLET PO PRN (22:56)
[2016-11-24] MEDS ORDERED: SODIUM PHOSPHATE/NA BIPHOS 133 ML ENEMA PR ONE (06:00)
--- NOTE | 2016-11-24 10:15 | PN ---
Progress Note (short form) - Note Progress Note: Feels OK but hungry. Noted LN biopsy was non-diagnostic -> Necrotic tissue. No CP or SOB. Intake & Output 11/21/16 11/22/16 11/23/16 11/24/16 23:59 23:59 23:59 23:59 Intake Total 2975 600 1740 200 Balance 2975 600 1740 200 Last Vital Signs Temp Pulse Resp BP Pulse Ox 98.9 F 73 18 115/77 99 11/24/16 08:17 11/24/16 09:08 11/24/16 09:08 11/24/16 09:08 11/24/16 09:08 Active Medications Clonazepam (Klonopin -) 1 mg PO TID PRN PRN Reason: ANXIETY Doxepin HCl (Sinequan -) 50 mg PO [facility] Last Admin: 11/23/16 21:34 Dose: 50 mg Lisinopril (Prinivil) 10 mg PO DAILY [facility] Last Admin: 11/23/16 10:36 Dose: 10 mg Pantoprazole Sodium (Protonix -) 40 mg PO DAILY [facility] Last Admin: 11/23/16 10:36 Dose: 40 mg Venlafaxine HCl (Effexor Xr -) 300 mg PO DAILY [facility] Last Admin: 11/23/16 10:36 Dose: 300 mg Constitutional: Yes: No Distress Eyes: Yes: Conjunctiva Clear, EOM Intact HENT: Yes: Atraumatic, Normocephalic Neck: Yes: Supple, Trachea Midline Cardiovascular: Yes: Regular Rate and Rhythm Respiratory: Yes: Regular, CTA Bilaterally ...Inspection: Yes: WNL ...Clubbing: No Gastrointestinal: Yes: Normal Bowel Sounds, Soft Renal/: Yes: WNL Musculoskeletal: Yes: WNL Extremities: Yes: WNL Edema: No Peripheral Pulses WNL: Yes Integumentary: Yes: WNL Neurological: Yes: WNL, Alert, Cran Nerves II-XII Intact ...Motor Strength: WNL Psychiatric: Yes: Alert, Oriented, Non-focal Labs: Laboratory Results - last 24 hr 11/21/16 11/22/16 17:18 07:30 Carcinoembryonic Ag 1.0 CA 19-9 Antigen 7 Problem List - Problems (1) GI bleeding Code(s): K92.2 - GASTROINTESTINAL HEMORRHAGE, UNSPECIFIED Qualifiers: GI bleed type/associated pathology: melena Qualified Code(s): K92.1 - Melena (2) Metastatic neoplastic disease Code(s): C79.9 - SECONDARY MALIGNANT NEOPLASM OF UNSPECIFIED SITE (3) SOB (shortness of breath) Code(s): R06.02 - SHORTNESS OF BREATH (4) Chest pain Code(s): R07.9 - CHEST PAIN, UNSPECIFIED Qualifiers: Chest pain type: unspecified Qualified Code(s): R07.9 - Chest pain, unspecified (5) HTN (hypertension) Code(s): I10 - ESSENTIAL (PRIMARY) HYPERTENSION Qualifiers: Hypertension type: essential hypertension Qualified Code(s): I10 - Essential (primary) hypertension (6) Osteoarthritis Code(s): M19.90 - UNSPECIFIED OSTEOARTHRITIS, UNSPECIFIED SITE Qualifiers: Osteoarthritis location: hip Osteoarthritis type: unspecified Laterality: bilateral Qualified Code(s): M16.0 - Bilateral primary osteoarthritis of hip (7) Smoking Code(s): F17.200 - NICOTINE DEPENDENCE, UNSPECIFIED, UNCOMPLICATED Assessment/Plan Surgical consult was called VTE prophylaxis O2 needed Dr Simpson Problem List - Problems (1) GI bleeding Code(s): K92.2 - GASTROINTESTINAL HEMORRHAGE, UNSPECIFIED Qualifiers: GI bleed type/associated pathology: melena Qualified Code(s): K92.1 - Melena (2) Metastatic neoplastic disease Code(s): C79.9 - SECONDARY MALIGNANT NEOPLASM OF UNSPECIFIED SITE (3) SOB (shortness of breath) Code(s): R06.02 - SHORTNESS OF BREATH (4) Chest pain Code(s): R07.9 - CHEST PAIN, UNSPECIFIED Qualifiers: Chest pain type: unspecified Qualified Code(s): R07.9 - Chest pain, unspecified (5) HTN (hypertension) Code(s): I10 - ESSENTIAL (PRIMARY) HYPERTENSION Qualifiers: Hypertension type: essential hypertension Qualified Code(s): I10 - Essential (primary) hypertension (6) Osteoarthritis Code(s): M19.90 - UNSPECIFIED OSTEOARTHRITIS, UNSPECIFIED SITE Qualifiers: Osteoarthritis location: hip Osteoarthritis type: unspecified Laterality: bilateral Qualified Code(s): M16.0 - Bilateral primary osteoarthritis of hip (7) Smoking Code(s): F17.200 - NICOTINE DEPENDENCE, UNSPECIFIED, UNCOMPLICATED
[2016-11-24] MEDS: VENLAFAXINE HCL 75 MG E.R. CAPSULES (FP) PO SCH (10:53)
[2016-11-24] MEDS: PANTOPRAZOLE 40 MG TABLET (FP) PO SCH (10:53)
[2016-11-24] MEDS: LISINOPRIL 10 MG TABLET (FP) PO SCH (10:53)
[2016-11-24] MEDS ORDERED: PT OWN MED DRAWER 7, Y5N ONE ×2 (11:08→21:36)
--- NOTE | 2016-11-24 11:21 | CONSULT ---
Consult Consult Specialty:: General Surgery Referred by:: Dr. Mendez Reason for Consultation:: need for tissue diagnosis, possible lymph node biopsy - History of Present Illness Chief Complaint: weakness, CP/SOB on admission, diffuse adenopathy and likely metastatic disease History of Present Illness: 56yo M smoker with HTN, CAD, OCD, depression, s/p bilateral TKR was admitted several days ago through ER with c/o CP/SOB/weakness. Cardiac workup has been negative, but he was found to have widespread likely metastatic disease with renal mass, intraabdominal and extraabdominal lymphadenopathy, lung nodules, possible adrenal and pancreatic masses. IR biopsies have yielded only necrotic tissue, and he is in need of tissue diagnosis. He c/o mainly weakness overall and is surprised by these findings. No abdominal pain, no personal realization of enlarged lymph nodes, no weight loss, no fever/chills. Colonoscopy this morning apparently found only hemorrhoids. Surgery is consulted for possible biopsy for tissue dx. - History Source History Provided By: Patient, Medical Record Limitations to Obtaining History: No Limitations - Past Medical History Cardio/Vascular: Yes: CAD, HTN Pulmonary: Yes: Other (smoker ) Gastrointestinal: Yes: Hemorrhoids Psych: Yes: Depression, Other (OCD) Musculoskeletal: Yes: Osteoarthritis (hips) ENT: Yes: Allergic Rhinitis (hay fever) - Past Surgical History Past Surgical History: Yes: Hernia Repair (left inguinal with appendectomy per patient), Joint Replacement (B/L knees) - Alcohol/Substance Use Hx Alcohol Use: No History of Substance Use: reports: Marijuana Date of Last Use: 02/27/90 (used for about 10 years long time ago) - Smoking History Smoking history: Current every day smoker Have you smoked in the past 12 months: Yes Aproximately how many cigarettes per day: 8 (~15-20 pk-yr hx, pack q2-3 days) - Social History Usual Living Arrangement: With Spouse ADL: Independent 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 History of Recent Travel: No Home Medications - Allergies Allergies/Adverse Reactions: Allergies Allergy/AdvReac Type Severity Reaction Status Date / Time Sulfa (Sulfonamide AdvReac Verified 11/24/16 10:11 Antibiotics) Bactrim AdvReac Uncoded 11/24/16 10:09 - Home Medications Home Medications: Ambulatory Orders Doxepin HCl [Sinequan -] 50 mg PO HS 09/09/12 Clonazepam [Klonopin] 0 mg PO TID 08/13/15 Venlafaxine HCl ER [Effexor Xr -] 300 mg PO DAILY cap.er.24h 08/14/15 Lisinopril 0 mg PO DAILY 11/20/16 Omeprazole 40 mg PO DAILY 11/20/16 Oxycodone HCl/Acetaminophen [Oxycodone-Acetaminophen 10-325] 1 each PO TID PRN 11/20/16 Family Disease History - Family Disease History Family Disease History: Heart Disease: Father Review of Systems - Review of Systems Constitutional: reports: Lethargy, Night Sweats (sometimes in summer - thought it was because of heavy covers), Weakness. denies: Chills, Fever, Loss of Appetite, Unintentional Wgt. Loss Eyes: reports: Other (uses reading glasses). denies: Recent Change in Vision HENT: denies: Difficult Swallowing, Hearing Loss, Throat Pain Neck: denies: Lumps (not that he noticed), Pain on Movement, Tenderness Respiratory: reports: SOB (only on presentation). denies: Cough Gastrointestinal: denies: Abdominal Pain, Constipation, Diarrhea, Nausea, Vomiting Genitourinary: denies: Burning, Dysuria Musculoskeletal: reports: Joint Pain (hips). denies: Back Pain Integumentary: denies: Change in Color, Lump, Rash Neurological: denies: Dizziness, Headache Endocrine: reports: Unexplained Weight Gain (gained 5 pounds in 2 months at last doctors visit). denies: Unexplained Weight Loss Psychiatric: reports: Depression, Other (OCD) Physical Exam Vital Signs: Vital Signs Temperature 98.9 F 11/24/16 08:17 Pulse Rate 73 11/24/16 09:08 Respiratory Rate 18 11/24/16 09:08 Blood Pressure 115/77 11/24/16 09:08 O2 Sat by Pulse Oximetry (%) 99 11/24/16 09:08 Constitutional: Yes: Well Nourished, No Distress, Calm Eyes: Yes: Conjunctiva Clear, EOM Intact HENT: Yes: Atraumatic, Normocephalic Neck: Yes: Supple, Trachea Midline, Lymphadenopathy (few nodes palpable bilaterally, deep, cervical and posterior triangles, no prominent supraclavicular or submental nodes; one fairly easily palpable almost 1cm node at left posterior triangle in zone 2 - could be excised) Cardiovascular: Yes: Regular Rate and Rhythm. No: Murmur Respiratory: Yes: Regular, CTA Bilaterally Gastrointestinal: Yes: Soft, Abdomen, Obese, Distention (mild with tympany (post -colonscopy)), Hypoactive Bowel Sounds. No: Tenderness ...Rectal Exam: Yes: Deferred Renal/: No: CVA Tenderness - Left, CVA Tenderness - Right Musculoskeletal: Yes: Other (bilateral knee scars). No: Joint Swelling Extremities: No: Cool, Cyanosis Edema: No Peripheral Pulses WNL: Yes Integumentary: Yes: Other (some bilateral groin nodes palpable - not easily accessible for biopsy). No: Erythema, Jaundice, Rash Neurological: Yes: Alert, Oriented Psychiatric: Yes: Alert, Oriented Labs: CBC, BMP 11/23/16 07:18 11/23/16 07:18 CMP Sodium 139 mmol/L (136-145) 11/23/16 07:18 Potassium 4.5 mmol/L (3.5-5.1) 11/23/16 07:18 Chloride 104 mmol/L (98-107) 11/23/16 07:18 Carbon Dioxide 29 mmol/L (21-32) 11/23/16 07:18 Anion Gap 6 (8-16) L 11/23/16 07:18 BUN 12 mg/dL (7-18) 11/23/16 07:18 Creatinine 0.7 mg/dL (0.7-1.3) 11/23/16 07:18 Creat Clearance w eGFR > 60 (>60) 11/23/16 07:18 Random Glucose 91 mg/dL (74-106) D 11/23/16 07:18 Uric Acid 5.3 mg/dL (2.6-7.2) 11/22/16 07:30 Calcium 8.4 mg/dL (8.5-10.1) L 11/23/16 07:18 Magnesium 2.2 mg/dL (1.8-2.4) 11/20/16 14:00 Iron 22 ug/dL (38-169) L 11/22/16 07:30 TIBC 200 ug/dL (250-450) L 11/22/16 07:30 Iron Saturation 11 % (15-55) L 11/22/16 07:30 Ferritin 102.970 ng/ml (16.4-293.9) 11/22/16 07:30 Total Bilirubin 0.2 mg/dL (0.2-1.0) D 11/23/16 07:18 AST 5 U/L (15-37) L D 11/23/16 07:18 ALT 16 U/L (12-78) 11/23/16 07:18 Alkaline Phosphatase 62 U/L (45-117) 11/23/16 07:18 LD Total 175 U/L (87-241) 11/22/16 07:30 Creatine Kinase 72 IU/L (39-308) 11/20/16 14:00 Troponin I < 0.02 ng/ml (0.00-0.05) 11/20/16 14:00 C-Reactive Protein 5.6 MG/DL (0.00-0.3) H 11/22/16 07:30 Total Protein 5.6 g/dl (6.4-8.2) L 11/23/16 07:18 Albumin 2.4 g/dl (3.4-5.0) L 11/23/16 07:18 Lipase 99 U/L (73-393) 11/20/16 14:00 Carcinoembryonic Ag 1.0 ng/mL (0.0-4.7) 11/21/16 17:18 CA 19-9 Antigen 7 U/mL (0-35) 11/22/16 07:30 Imaging - Results Cat Scan: Report Reviewed, Image Reviewed Problem List - Problems (1) Diffuse lymphadenopathy Assessment/Plan: IR biopsy with necrotic tissue only cervical node at left posterior neck amenable to excisional biopsy if OR can accommodate today, offered same to patient, who wishes to proceed R/B/A including bleeding, infection, injury to nearby structures including vessels and nerves discussed pt to stay npo until possible surgery with LR running if cannot do today, or node appears nondiagnostic - IR plans for biopsy of another site tomorrow (lung? abdominal wall?) PET planned for further workup if all else fails, can consider laparoscopy with biopsy of intraabdominal node or tissue Code(s): R59.1 - GENERALIZED ENLARGED LYMPH NODES (2) Metastatic neoplastic disease Assessment/Plan: in need of tissue diagnosis, renal may be primary but so far LN/tissue biopsies have been nondiagnostic Code(s): C79.9 - SECONDARY MALIGNANT NEOPLASM OF UNSPECIFIED SITE (3) HTN (hypertension) Assessment/Plan: on home meds Code(s): I10 - ESSENTIAL (PRIMARY) HYPERTENSION Qualifiers: Hypertension type: essential hypertension Qualified Code(s): I10 - Essential (primary) hypertension (4) Smoking Assessment/Plan: discussed cessation pt to f/u with his psychiatrist Code(s): F17.200 - NICOTINE DEPENDENCE, UNSPECIFIED, UNCOMPLICATED
[2016-11-24] MEDS ORDERED: LACTATED RINGERS SOLUTION 1,000 ML IV SCH (13:30)
--- NOTE | 2016-11-24 15:52 | PN ---
Progress Note, Physician Chief Complaint: s/p colonoscopy-- no tumor noted called surgeon for excisional biopsy of lymph node - Current Medication List Current Medications: Active Medications Acetaminophen (Tylenol -) 325 mg PO Q4H PRN PRN Reason: PAIN Stop: 11/27/16 15:16 Clonazepam (Klonopin -) 1 mg PO TID PRN PRN Reason: ANXIETY Doxepin HCl (Sinequan -) 50 mg PO HS [facility] Last Admin: 11/23/16 21:34 Dose: 50 mg Lactated Ringer's (Lactated Ringers Solution) 1,000 mls @ 100 mls/hr IV ASDIR [facility] Last Admin: 11/24/16 14:02 Dose: 100 mls/hr Lisinopril (Prinivil) 10 mg PO DAILY [facility] Last Admin: 11/24/16 10:53 Dose: 10 mg Oxycodone HCl (Roxicodone -) 5 mg PO Q4H PRN PRN Reason: PAIN Pantoprazole Sodium (Protonix -) 40 mg PO DAILY [facility] Last Admin: 11/24/16 10:53 Dose: 40 mg Venlafaxine HCl (Effexor Xr -) 300 mg PO DAILY [facility] Last Admin: 11/24/16 10:53 Dose: 300 mg - Objective Vital Signs: Vital Signs Temperature 98.9 F 11/24/16 14:50 Pulse Rate 75 11/24/16 14:50 Respiratory Rate 18 11/24/16 14:50 Blood Pressure 123/74 11/24/16 14:50 O2 Sat by Pulse Oximetry (%) 95 11/24/16 11:00 Constitutional: Yes: Anxious Cardiovascular: Yes: Regular Rate and Rhythm Respiratory: Yes: CTA Bilaterally Gastrointestinal: Yes: Normal Bowel Sounds, Soft. No: Distention, Tenderness Edema: No Labs: CBC, BMP 11/23/16 07:18 11/23/16 07:18 INR, PTT INR 1.08 (0.82-1.09) 11/20/16 14:00 Problem List - Problems (1) GI bleeding Code(s): K92.2 - GASTROINTESTINAL HEMORRHAGE, UNSPECIFIED Qualifiers: GI bleed type/associated pathology: melena Qualified Code(s): K92.1 - Melena (2) Metastatic neoplastic disease Code(s): C79.9 - SECONDARY MALIGNANT NEOPLASM OF UNSPECIFIED SITE (3) SOB (shortness of breath) Code(s): R06.02 - SHORTNESS OF BREATH (4) Chest pain Code(s): R07.9 - CHEST PAIN, UNSPECIFIED Qualifiers: Chest pain type: unspecified Qualified Code(s): R07.9 - Chest pain, unspecified (5) HTN (hypertension) Code(s): I10 - ESSENTIAL (PRIMARY) HYPERTENSION Qualifiers: Hypertension type: essential hypertension Qualified Code(s): I10 - Essential (primary) hypertension Assessment/Plan s/p colonoscopy tumor markers negative so far To OR for excisional biopsy-- need a tissue diagnosis if able to get LN, pt may be discharged home afterwards-- he is anxious to go but would like the necessary procedures done here to find the diagnosis-- he is considering about going to [facility] or [facility]
[2016-11-24] MEDS: oxyCODONE HCL 5 MG TABLET PO PRN ×2 (16:21→20:48)
[2016-11-24] MEDS: ACETAMINOPHEN 325 MG TABLET (FP) PO PRN ×2 (16:22→20:49)
[2016-11-24] MEDS: DOXEPIN HCL 25 MG CAPSULE PO SCH (21:44)
--- NOTE | 2016-11-24 22:53 | PN ---
Progress Note (short form) - Note Progress Note: Patient seen and examined Feels well AFVSS Cor: RSR, No murmurs, No gallops Lungs: Clear to P&A Abd: Soft, Normal bowel sounds, No organomegaly Ext:No significant edema Labs/meds reviewed A/P 56 y/o patient with widely metastic disease on imaging, ? renal mass, peripancreati mass? retroperitoneal node bc of pelvic node was nonconclusive to get excisional biopsy of neck node per surgery,---if this fails then IR to reconsider biopsy of lung nodule or abdominal node discussed with patient
--- NOTE | 2016-11-25 06:53 | PN ---
Progress Note (short form) - Note Progress Note: Pt seen and examined in bed. Feeling well. NPO since midnight. AF VSS left posterior neck lymph node palpable - marked with surgical ink A/P: metastatic disease without tissue diagnosis or primary site known Discussed with patient risks, benefits and alternatives of left posterior neck lymph node biopsy, including but not limited to bleeding, infection, injury to adjacent structures, including vessels and nerves. Patient desires to proceed with operation - will take to OR for above. Informed consent signed for same. If touch prep indicates ability to obtain diagnosis (vs reactive node), no need for IR attempt today. If not, consider proceeding with additional tissue sampling. Problem List - Problems (1) Diffuse lymphadenopathy Code(s): R59.1 - GENERALIZED ENLARGED LYMPH NODES (2) Metastatic neoplastic disease Code(s): C79.9 - SECONDARY MALIGNANT NEOPLASM OF UNSPECIFIED SITE (3) HTN (hypertension) Code(s): I10 - ESSENTIAL (PRIMARY) HYPERTENSION Qualifiers: Hypertension type: essential hypertension Qualified Code(s): I10 - Essential (primary) hypertension (4) Smoking Code(s): F17.200 - NICOTINE DEPENDENCE, UNSPECIFIED, UNCOMPLICATED
[2016-11-25] MEDS ORDERED: LIDOCAINE 1%/EPI 1:100000 (50 ML MULTI DOSE VIAL) ONE (07:30)
[2016-11-25] MEDS ORDERED: LIDOCAINE HCL 1%, 10 MG/ML (20ML VIAL) ONE (07:30)
[2016-11-25] MEDS ORDERED: PROPOFOL 20 ML ONE (07:59)
[2016-11-25] MEDS ORDERED: MIDAZOLAM HCL 2 MG/2 ML SINGLE DOSE VIAL ONE (07:59)
[2016-11-25] MEDS ORDERED: DEXAMETHASONE SOD PHOSPHATE 4 MG/1 ML VIAL ONE (09:05)
[2016-11-25] MEDS ORDERED: ONDANSETRON 4 MG/2 ML VIAL IVPUSH PRN ×2 (09:26→12:08)
[2016-11-25] MEDS ORDERED: LACTATED RINGERS SOLUTION 1,000 ML IV SCH (09:30)
[2016-11-25] MEDS ORDERED: LIDOCAINE HCL 1%, 10 MG/ML (20ML VIAL) INF ONE (09:35)
[2016-11-25] MEDS ORDERED: BUPIVACAINE HCL/PF 0.5% (5MG/ML) 10 ML VIAL IJ ONE (09:35)
[2016-11-25] MEDS ORDERED: oxyCODONE HCL 5 MG TABLET PO PRN (09:45)
--- NOTE | 2016-11-25 09:45 | OP ---
Operative Note - Note: Operative Date: 11/25/16 Pre-Operative Diagnosis: lymphadenopathy, presumed metastatic disease with unknown primary Operation: left posterior neck lymph node biopsy Findings: one node sent for touch prep - favor reactive lilia tissue, no malignancy identified; one additional small node sent for permanent, no others palpable in field Post-Operative Diagnosis: Same as Pre-op Surgeon: José Luis Caicedo Anesthesiologist/RADIO MECHANIC HELPER: Atul Fritz Anesthesia: General (LMA), Local (9ml 1% lidocaine + 0.5% marcaine) Specimens Removed: left external jugular lymph node - one for touch prep and perm, one for perm only Estimated Blood Loss (mls): 2 Fluid Volume Replaced (mls): 900 (crystalloid) Operative Report Dictated: Yes
[2016-11-25] MEDS ORDERED: BUPIVACAINE HCL/PF 0.5% (5MG/ML) 10 ML VIAL ONE (09:52)
--- NOTE | 2016-11-25 11:09 | PN ---
Progress Note (short form) - Note Progress Note: patient seen and examined Just came from or Biopsy done--findings noted--as frozen section shows reactive INR has been consulted by the surgeon--for further biopsy Surgeon instructed to keep patient nothing by mouth patient denies pain Comfortable Vital Signs Temp 99.2 F 11/25/16 09:41 Pulse 82 11/25/16 10:10 Resp 16 11/25/16 10:10 BP 110/63 11/25/16 10:10 Pulse Ox 100 11/25/16 10:10 Intake & Output 11/24/16 11/24/16 11/25/16 11:59 23:59 11:59 Intake Total 200 200 900 Output Total 2 Balance 200 200 898 Intake: IV 200 900 IVPB 0 0 0 Oral 200 Output: Estimated Blood Loss 2 Other: Voiding Method Toilet # Unmeasured Voids Void 2 Active Medications Acetaminophen (Tylenol -) 325 mg PO Q4H PRN PRN Reason: PAIN Stop: 11/27/16 15:16 Last Admin: 11/24/16 20:49 Dose: 325 mg Clonazepam (Klonopin -) 1 mg PO TID PRN PRN Reason: ANXIETY Last Admin: 11/24/16 21:43 Dose: 1 mg Doxepin HCl (Sinequan -) 50 mg PO HS [facility] Last Admin: 11/24/16 21:44 Dose: 50 mg Fentanyl (Sublimaze Injection -) 50 mcg IVPUSH [id number] PRN PRN Reason: PAIN Stop: 11/28/16 09:27 Lactated Ringer's (Lactated Ringers Solution) 1,000 mls @ 125 mls/hr IV ASDIR [facility] Lisinopril (Prinivil) 10 mg PO DAILY [facility] Last Admin: 11/24/16 10:53 Dose: 10 mg Ondansetron HCl (Zofran Injection) 4 mg IVPUSH Q6H PRN PRN Reason: NAUSEA AND/OR VOMITING Stop: 11/25/16 15:27 Oxycodone HCl (Roxicodone -) 10 mg PO Q4H PRN PRN Reason: PAIN Pantoprazole Sodium (Protonix -) 40 mg PO DAILY [facility] Last Admin: 11/24/16 10:53 Dose: 40 mg Venlafaxine HCl (Effexor Xr -) 300 mg PO DAILY [facility] Last Admin: 11/24/16 10:53 Dose: 300 mg CBC, BMP 11/23/16 07:18 11/23/16 07:18 Physical exam Constitutional: Yes: comfortable Cardiovascular: Yes: Regular Rate and Rhythm Respiratory: Yes: CTA Bilaterally Gastrointestinal: Yes: Normal Bowel Sounds, Soft. No: Distention, Tenderness Edema: No assessment and plan Will discuss with surgeon Interventional radiology to follow-Biopsy today Continue present care We will consider discharge home after biopsy if stable Will follow oncology to follow also Problem List - Problems (1) GI bleeding Code(s): K92.2 - GASTROINTESTINAL HEMORRHAGE, UNSPECIFIED Qualifiers: GI bleed type/associated pathology: melena Qualified Code(s): K92.1 - Melena (2) Metastatic neoplastic disease Code(s): C79.9 - SECONDARY MALIGNANT NEOPLASM OF UNSPECIFIED SITE (3) SOB (shortness of breath) Code(s): R06.02 - SHORTNESS OF BREATH (4) Chest pain Code(s): R07.9 - CHEST PAIN, UNSPECIFIED Qualifiers: Chest pain type: unspecified Qualified Code(s): R07.9 - Chest pain, unspecified (5) HTN (hypertension) Code(s): I10 - ESSENTIAL (PRIMARY) HYPERTENSION Qualifiers: Hypertension type: essential hypertension Qualified Code(s): I10 - Essential (primary) hypertension (6) Smoking Code(s): F17.200 - NICOTINE DEPENDENCE, UNSPECIFIED, UNCOMPLICATED
[2016-11-25 11:48] LABS: INR 1.15 (0.82-1.09); PROTHROMBIN TIME (PATIENT) 12.7 SEC (9.98-11.88)
[2016-11-25] MEDS ORDERED: BISACODYL 5 MG TABLET.DR (FP) PO ONE (12:08)
[2016-11-25] MEDS ORDERED: clonazePAM 0.5 MG TABLET PO PRN (12:08)
[2016-11-25] MEDS: oxyCODONE HCL 5 MG TABLET PO PRN ×2 (12:44→17:51)
[2016-11-25] MEDS: ACETAMINOPHEN 325 MG TABLET (FP) PO PRN ×2 (12:45→17:52)
--- NOTE | 2016-11-25 13:28 | PN ---
Progress Note, Physician History of Present Illness: PULMONARY ALERT,NAD,-SOB. BX NON-DIAGNOSTIC. - Current Medication List Current Medications: Active Medications Acetaminophen (Tylenol -) 325 mg PO Q4H PRN PRN Reason: PAIN Stop: 11/27/16 15:16 Last Admin: 11/25/16 12:45 Dose: 325 mg Bisacodyl (Dulcolax -) 10 mg PO ONCE ONE Stop: 11/25/16 12:09 Clonazepam (Klonopin -) 1 mg PO TID PRN PRN Reason: ANXIETY Doxepin HCl (Sinequan -) 50 mg PO HS [facility] Lisinopril (Prinivil) 10 mg PO DAILY [facility] Ondansetron HCl (Zofran Injection) 4 mg IVPUSH Q6H PRN PRN Reason: NAUSEA AND/OR VOMITING Stop: 11/25/16 15:27 Oxycodone HCl (Roxicodone -) 10 mg PO Q4H PRN PRN Reason: PAIN Last Admin: 11/25/16 12:44 Dose: 10 mg Pantoprazole Sodium (Protonix -) 40 mg PO DAILY [facility] Venlafaxine HCl (Effexor Xr -) 300 mg PO DAILY@0800 [facility] - Objective Vital Signs: Vital Signs Temperature 98.7 F 11/25/16 10:55 Pulse Rate 80 11/25/16 10:55 Respiratory Rate 16 11/25/16 10:55 Blood Pressure 106/65 11/25/16 10:55 O2 Sat by Pulse Oximetry (%) 100 11/25/16 10:40 Constitutional: Yes: Well Nourished, Calm Eyes: Yes: WNL HENT: Yes: WNL Neck: Yes: WNL Cardiovascular: Yes: Regular Rate and Rhythm, S1, S2 Respiratory: Yes: CTA Bilaterally Gastrointestinal: Yes: Normal Bowel Sounds, Soft Extremities: Yes: WNL Edema: No Labs: CBC, BMP 11/23/16 07:18 11/23/16 07:18 INR, PTT INR 1.15 (0.82-1.09) H 11/25/16 11:15 Assessment/Plan Problem List - Problems (1) GI bleeding Code(s): K92.2 - GASTROINTESTINAL HEMORRHAGE, UNSPECIFIED Qualifiers: GI bleed type/associated pathology: melena Qualified Code(s): K92.1 - Melena (2) Metastatic neoplastic disease Code(s): C79.9 - SECONDARY MALIGNANT NEOPLASM OF UNSPECIFIED SITE (3) SOB (shortness of breath) Code(s): R06.02 - SHORTNESS OF BREATH (4) Chest pain Code(s): R07.9 - CHEST PAIN, UNSPECIFIED Qualifiers: Chest pain type: unspecified Qualified Code(s): R07.9 - Chest pain, unspecified (5) HTN (hypertension) Code(s): I10 - ESSENTIAL (PRIMARY) HYPERTENSION Qualifiers: Hypertension type: essential hypertension Qualified Code(s): I10 - Essential (primary) hypertension (6) Osteoarthritis Code(s): M19.90 - UNSPECIFIED OSTEOARTHRITIS, UNSPECIFIED SITE Qualifiers: Osteoarthritis location: hip Osteoarthritis type: unspecified Laterality: bilateral Qualified Code(s): M16.0 - Bilateral primary osteoarthritis of hip (7) Smoking Code(s): F17.200 - NICOTINE DEPENDENCE, UNSPECIFIED, UNCOMPLICATED Assessment/Plan repeat bx path pending ( left neck node) VTE prophylaxis O2 needed DR PIERSON
--- NOTE | 2016-11-25 18:13 | PN ---
Progress Note (short form) - Note Progress Note: Patient seen and examined Cor: RSR, No murmurs, No gallops Lungs: Clear to P&A Abd: Soft, Normal bowel sounds, No organomegaly Ext:No significant edema cervical adenopathy Temp Pulse Resp BP Pulse Ox 99.5 F 79 18 140/79 97 11/23/16 06:00 11/23/16 06:00 11/23/16 06:00 11/23/16 06:00 11/22/16 21:00 Current Medications Generic Name Dose Route Start Last Admin Trade Name Freq PRN Reason Stop Dose Admin Acetaminophen 650 mg 11/21/16 10:21 11/23/16 05:53 Tylenol - PO 11/23/16 19:44 650 mg Q4H PRN Administration PAIN Bisacodyl 10 mg 11/23/16 16:00 Dulcolax - PO 11/23/16 16:01 ONCE ONE Bisacodyl 10 mg 11/23/16 20:00 Dulcolax - PO 11/23/16 20:01 ONCE ONE Clonazepam 1 mg 11/20/16 21:19 11/22/16 21:07 Klonopin - PO 1 mg TID PRN Administration ANXIETY Doxepin HCl 50 mg 11/20/16 22:00 11/22/16 21:07 Sinequan - PO 50 mg HS KATELYN Administration Lisinopril 10 mg 11/21/16 10:00 11/23/16 10:36 Prinivil PO 10 mg DAILY KATELYN Administration Oxycodone HCl 10 mg 11/20/16 19:45 11/23/16 05:52 Roxicodone - PO 10 mg Q8H PRN Administration PAIN Pantoprazole Sodium 40 mg 11/21/16 10:00 11/23/16 10:36 Protonix - PO 40 mg DAILY KATELYN Administration Polyethylene Glycol 255 gm 11/23/16 16:00 Miralax (For Bowel Prep) - PO 11/23/16 16:01 ONCE ONE Sodium Phosphate 133 ml 11/24/16 06:00 Fleet Adult Rectal Enema - IA 11/24/16 06:01 ONCE ONE Venlafaxine HCl 300 mg 11/21/16 10:00 11/23/16 10:36 Effexor Xr - PO 300 mg DAILY KATELYN Administration CBC, BMP 11/23/16 07:18 11/23/16 07:18 Labs/meds reviewed A/P 56 y/o patient with widely metastic disease on imaging, ? renal mass, peripancreati mass? retroperitoneal node bc of pelvic node was nonconclusive surgery performed biopsy today, touch prep of one neck MOLLY, reactive, but the other one is pending, d.w surgery, rec for IR. IR procedure not done today. if pt agrees to stay, d/w surgery, could consider diag lap/biopsy vs IR procedure past weekend. discussed with pt/surgery/ will follow
[2016-11-25] MEDS: LISINOPRIL 10 MG TABLET (FP) PO SCH (20:49)
[2016-11-25] MEDS: VENLAFAXINE HCL 75 MG E.R. CAPSULES (FP) PO SCH (20:49)
[2016-11-25] MEDS: PANTOPRAZOLE 40 MG TABLET (FP) PO SCH (20:49)
[2016-11-25] MEDS ORDERED: PT OWN MED DRAWER 7, Y5N ONE (21:23)
[2016-11-25] MEDS ORDERED: DOXEPIN HCL 25 MG CAPSULE PO SCH (22:00)
[2016-11-26] MEDS ORDERED: VENLAFAXINE HCL 75 MG E.R. CAPSULES (FP) PO SCH (08:00)
[2016-11-26] MEDS: oxyCODONE HCL 5 MG TABLET PO PRN (08:33)
[2016-11-26] MEDS: ACETAMINOPHEN 325 MG TABLET (FP) PO PRN (08:49)
[2016-11-26] MEDS ORDERED: PT OWN MED DRAWER 7, Y5N ONE (08:54)
[2016-11-26] MEDS ORDERED: LISINOPRIL 10 MG TABLET (FP) PO SCH (10:00)
[2016-11-26] MEDS ORDERED: PANTOPRAZOLE 40 MG TABLET (FP) PO SCH (10:00)
--- NOTE | 2016-11-26 10:45 | DS ---
Physical Examination Vital Signs: Vital Signs Temperature 98.1 F 11/26/16 06:33 Pulse Rate 85 11/26/16 06:33 Respiratory Rate 18 11/26/16 06:33 Blood Pressure 92/50 11/26/16 06:33 O2 Sat by Pulse Oximetry (%) 100 11/25/16 21:00 Findings/Remarks: feels well. no complains denies cp/sob. Constitutional: Yes: No Distress, Calm Eyes: Yes: Conjunctiva Clear Neck: Yes: Supple Cardiovascular: Yes: Regular Rate and Rhythm Respiratory: Yes: CTA Bilaterally Gastrointestinal: Yes: Soft Edema: No Neurological: Yes: Alert Psychiatric: Yes: Alert Labs: CBC, BMP 11/23/16 07:18 11/23/16 07:18 Discharge Summary Reason For Visit: GI BLEEDSOB,METASTIC NEOPLASTIC DISEASE Current Active Problems Diffuse lymphadenopathy (Acute) GI bleeding (Acute) Metastatic neoplastic disease (Acute) SOB (shortness of breath) (Acute) Hospital Course: 56 y/o patient smoker, s/p Lt. inguinal hernia repair, s/p b/lTKR comes in with fatigue, weakness, melaena No fever/night sweats/wt. loss. +ve guic stool. CT scan --mediastinal adenopathy/intraabdominal , cervical adenopathy, renal mass, pancreatic soft tissue mass, peritoneal implants Clinical scenario suspicious for widely metastatic disease. had cervical biopsy done x2-- reactive need further biopsy under IR guidance.-- possibly on monday. colonoscopy also done-- -ve for malignancy dscuused with pt. pt wants to go home -- says will follow as out pt and with follow with his pmd on monday will arrange biopsy as out pt also says he is considering going to [place]. I have extensive talk with pt-- Agree that further work can be done as out pt. will discharge today. will discuss with his pmd - also on monday. Condition: Improved - Instructions Referrals: Edgar Stevens MD [Primary Care Provider] - - Home Medications Comprehensive Discharge Medication List: Ambulatory Orders Doxepin HCl [Sinequan -] 50 mg PO HS 09/09/12 Clonazepam [Klonopin] 0 mg PO TID 08/13/15 Venlafaxine HCl ER [Effexor Xr -] 300 mg PO DAILY cap.er.24h 08/14/15 Omeprazole 40 mg PO DAILY 11/20/16 Oxycodone HCl/Acetaminophen [Oxycodone-Acetaminophen 10-325] 1 each PO TID PRN 11/20/16 Acetaminophen [Tylenol .Regular Strength -] 325 mg PO Q4H PRN #0 tablet Lisinopril [Prinivil] 10 mg PO DAILY tablet 11/26/16
[2016-11-26 12:48] VITALS: BP 107/72; PULSE 84; TEMP 98.8
--- NOTE | 2016-11-28 12:39 | PATH ---
Surgical Pathology Report Patient Name: BRANDEN BILL [facility]. Rec. #: [id number] /Age/Gender: 1960 (Age: 56) / M Account: [id number] Location: [address] [place] [address] Taken: 11/25/2016 Received: 11/25/2016 Reported: 11/28/2016 Physicians: José Luis Caicedo M.D. Georgia Darby M.D. Specimen(s) Received A: LEFT JUGULAR LYMPH NODE B: LEFT LYMPH NODE EXTERNAL JUGULAR Clinical History Lymphadenopathy, metastatic disease Intraoperative Consult Diagnosis A. Left jugular lymph node, touch prep: Lymphoid tissue present, favor reactive. No carcinoma identified. Dr. Cano, November 25, 2016 Final Diagnosis A. LYMPH NODE, LEFT JUGULAR, EXCISION: BENIGN LYMPH NODE. NO LYMPHOMA OR METASTATIC CARCINOMA IDENTIFIED. B. LYMPH NODE, LEFT JUGULAR, EXCISION: BENIGN LYMPH NODE. NO LYMPHOMA OR METASTATIC CARCINOMA IDENTIFIED. Comment: Flow cytometry performed and interpreted at [place], [place] ([id number]) shows the following: In the sample analyzed, there is no evidence of B or T-cell proliferative disorders. Comment: Recommend correlation with clinical findings and follow up as clinically indicated. Electronically Signed Negro Cano M.D. Gross Description A. Received fresh for intraoperative consultation labeled "left jugular lymph node" is a 1.1 x 0.8 x 0.5 cm delarosa ovoid lymph node. Cut surface reveals a yellow and brown interior. Touch imprints are prepared. A technical service representative portion is submitted for flow cytometry. All the remaining tissue is submitted for permanent section in one cassette. B. Received in formalin labelled "left jugular lymph node" is a 1.5 x 0.6 x 0.3 cm piece of delarosa and yellow tissue. Totally submitted in one cassette. [facility]/11/25/2016 [facility]/11/25/2016
--- NOTE | 2016-11-29 11:41 | OP ---
DATE OF OPERATION: 11/25/2016 PREOPERATIVE DIAGNOSIS: Lymphadenopathy and presumed metastatic disease with unknown primary. POSTOPERATIVE DIAGNOSIS: Lymphadenopathy and presumed metastatic disease with unknown primary. PROCEDURE PERFORMED: Left posterior neck lymph node biopsy. SURGEON: José Luis Caicedo MD ANESTHESIA: General by LMA and local (9 mL of 1% lidocaine plus 0.5% Marcaine) . ESTIMATED BLOOD LOSS: 2 mL. FLUIDS: Crystalloid, 900 mL. SPECIMEN: Left external jugular lymph node sent for touch preparation and permanent and a small additional lymph node sent for permanent only. FINDINGS: The one node sent for touch preparation favored reactive lilia tissue with no malignancy identified by touch preparation. There was one small additional node also sent for permanent, and no others were palpable in the field. DISPOSITION: Stable and awake to PACU. INDICATIONS FOR PROCEDURE: The patient is a 56-year-old male smoker with a history of hypertension, CAD, OCD and depression, status post bilateral knee replacement, who was initially admitted several days prior with chest pain, shortness of breath, and weakness. Cardiac workup was negative, but he was found to have likely widespread metastatic disease with intraabdominal findings of a renal mass, possible peripancreatic mass, possible adrenal mass, intraabdominal and extraabdominal lymphadenopathy, and numerous bilateral lung nodules. Interventional Radiology had attempted biopsy of an abdominal wall mass which yielded only necrotic tissue and peritoneal fluid nondiagnostic in nature. He is still in need of a tissue diagnosis. Surgery was asked to attempt biopsy of a palpable lymph node in pursuing this. Colonoscopy was also performed this morning and found only hemorrhoids. Risks, benefits, and alternatives of left neck lymph node biopsy were discussed with the patient including, but not limited to, bleeding, infection, injury to nearby structures including vessels and nerves, and the patient signed informed consent for the same. The palpable lymph node at the patient's left posterior neck was marked with a surgical marker, which persisted through the sterile prep. OPERATIVE TECHNIQUE: The patient was brought to the operating room and laid supine on the operating table. Sequential compression devices were used for bilateral lower extremities, and no antibiotics were given prior to the clean procedure. The patient's head was positioned turned to the right, and after induction, an LMA was placed by Anesthesia. The patient's left neck was prepped and draped in sterile fashion. An incision was made in a neck crease with a scalpel, directly over the posterior palpable lymph node, and carried into subcutaneous tissues with electrocautery until the platysma was divided. A clamp tip was used to gently begin spreading in the subcutaneous fat, and a fingertip was used to palpate and locate the desired lymph node. As it was identified, a 3-0 chromic stitch was placed through the likely lymph node and used to draw it up into the field. Dissection was undertaken around it with tip of a clamp, and 3-0 Vicryl ties used to serially tie off the tissues surrounding the lymph node including the pedicle. Once it had been completely from the surrounding fatty tissue, the specimen was passed off and sent directly to Pathology for touch preparation. This later came back as lymph node tissue favoring reactive changes, with no identification of malignant cells on the touch preparation. While waiting for Pathology, the field was reinspected and repalpated looking for any additional nodes. One additional small node was felt, brought up into the field in similar fashion with a chromic stitch, and excised. It was noted to be quite small, and sent only for permanent section. Hemoclips were used around this node in the process of its dissection, in it from the surrounding tissue. The area was irrigated with saline solution and suctioned clean. Hemostasis was noted with almost no blood loss, although cautery had been used against the skin edges for hemostasis where necessary. 3-0 Vicryl stitches were then used to reapproximate the platysma. The skin was then closed with a running 4-0 subcuticular Vicryl suture. Dermabond was applied over the incision. Counts were correct at the end of the procedure. The patient was then awakened and the LMA removed by Anesthesia. He was able to move back onto a stretcher and was taken to the recovery room in stable condition having tolerated the procedure well. Daniel [id number] NIA
== END 2016-11-26 13:00 | disposition home or self-care (01) | DRG 803 ==
LOC: JER 13:29 → JERBED 18:21 → J6S 19:44
PROVIDERS: ADMIT Internal Medicine; ATTEND Internal Medicine
PROC: 0DJD8ZZ Inspection of Lower Intestinal Tract, Via Natural or Artificial Opening Endoscopic (ICD-10-PCS; 2016-11-24)
PROC: 07B20ZX Excision of Left Neck Lymphatic, Open Approach, Diagnostic (ICD-10-PCS; principal; 2016-11-25 08:00)
DX: R59.1 Generalized enlarged lymph nodes (principal); K62.5 Hemorrhage of anus and rectum; K64.8 Other hemorrhoids; F17.210 Nicotine dependence, cigarettes, uncomplicated; R63.4 Abnormal weight loss; Z68.33 Body mass index [BMI] 33.0-33.9, adult; Z96.653 Presence of artificial knee joint, bilateral; F32.9 Major depressive disorder, single episode, unspecified; I10 Essential (primary) hypertension; M19.90 Unspecified osteoarthritis, unspecified site; I25.10 Atherosclerotic heart disease of native coronary artery without angina pectoris; D72.829 Elevated white blood cell count, unspecified; R07.89 Other chest pain; F42.9 Obsessive-compulsive disorder, unspecified
CPT/HCPCS: 36415; 38505; 71020-TC; 71260-TC; 74177-TC; 76098-TC; 77012-TC; 80053; 81003; 81015; 82272; 82378; 82728; 83540; 83550; 83615; 83690; 83735; 84484; 84550; 85025; 85027; 85610; 85651; 85730; 86140; 86301; 86704; 86706; 86708; 86850; 86900; 86901; 87040; 87340; 87389; 87899; 88108; 88305-TC; 93005; 93010; 93306-TC; 94760; 99285-25; J7030

== ENCOUNTER 2016-12-13 07:58 | Day surgery (SDC) | payer OTHER ==
[2016-12-12 12:40] VITALS: BMI 33.3
[2016-12-13] MEDS ORDERED: ACETAMINOPHEN 325 MG TABLET (FP) PO ONE (09:25)
[2016-12-13] MEDS ORDERED: ACETAMINOPHEN 325 MG TABLET (FP) ONE (09:33)
[2016-12-13 14:03] VITALS: BP 103/53; PULSE 91; TEMP 99.1
--- NOTE | 2016-12-21 09:57 | PATH ---
Surgical Pathology Report Patient Name: BRANDEN BILL [facility]. Rec. #: [id number] /Age/Gender: 1960 (Age: 56) / M Account: [id number] Location: Taken: 12/13/2016 Received: 12/13/2016 Reported: 12/21/2016 Physicians: Daniel Tanner M.D. Specimen(s) Received RENAL BIOPSY Clinical History 56-year-old male with right renal mass and multiple mesenteric and lung masses, likely mets, r/o RCC Final Diagnosis KIDNEY, RIGHT, BIOPSY: MALIGNANT NEOPLASM, CONSISTENT WITH MELANOMA, SEE COMMENT. Comment: Immunohistochemical stains performed at [place], [place] ([id number]) and interpreted at [facility] shows the tumor is positive for melanocytic markers (SOX-10, Melan-A, HMB45, ROSEY-F, S100), vimentin and BCL2, while negative for renal markers ([place] 8, RCC), vascular marker (CD31, CD34), Low molecular weight cytokeratin (CAM 5.2), and muscle markers (SMA and desmin). Estimated proliferative marker, ki-67, shows high proliferative rate (up to 40%). Additional immunohistochemical stains performed and interpreted at [facility] show the following results: Cytokeratin AE1/3, CK7 and CK20 are negative. PDL-1 (Dako 22C3, Clone 22C3 pharmDX(tm) kit for Keytruda) immunohistochemical stain performed and interpreted at [place], [place] ([id number]) shows no PDL-1 expression (0%). See [facility] report for details. Overall immunophenotype supports the above diagnosis. Suggest clinical/radiologic correlation. Prior material from the left jugular lymph node is reviewed ([id number]). Findings discussed with Dr. Hernández on 12/19/16. Case shown interdepartmentally. Molecular studies for BRAF is pending and will be reported as an addendum. Electronically Signed Linda Lemon M.D. Addendum Reported: 12/22/2016 Addendum Diagnosis BRAF MUTATION ANALYSIS performed and interpreted at [place], [place] ([id number]) shows the following: RESULTS: A nucleotide change encoding the V600 mutation was not detected. INTERPRETATION: NEGATIVE for a BRAF V600 mutation. This result does not rule out the presence of the BRAF mutation at a level below the sensitivity of detection of this assay, or the presence of other mutations within BRAF not detected by this assay. Results should be interpreted in conjunction with clinical and other laboratory findings for the most accurate interpretation. See [facility] report for additional details. Linda Lemon M.D. Gross Description Received in formalin labeled "right renal biopsy," is a 0.5 x 0.5 x 0.1 cm aggregate of delarosa-brown, irregular to cylindrical fragments of soft tissue. The formalin is filtered and the specimen is entirely submitted in one cassette. 12/13/201612/13/2016
== END 2016-12-13 14:10 | disposition home or self-care (01) ==
LOC: JRADIR 07:58
PROVIDERS: ATTEND Internal Medicine
PROC: 0TB03ZX Excision of Right Kidney, Percutaneous Approach, Diagnostic (ICD-10-PCS; principal; 2016-12-13)
PROC: BT21ZZZ Computerized Tomography (CT Scan) of Right Kidney (ICD-10-PCS; 2016-12-13)
DX: C64.1 Malignant neoplasm of right kidney, except renal pelvis (principal)
CPT/HCPCS: 50200; 76942-TC; 88305-TC; 88341-TC; 88342-TC